=== PATIENT | female | born 1965 | race Caucasian/White ===

== ENCOUNTER 2017-11-10 09:08 | Emergency (ER) | payer BC, SELFPAY ==
--- NOTE | 2017-11-10 09:50 | XR_ITS ---
XR chest 2V HISTORY: ITS.REASON: CHEST CONGESTION ORDERING PHYSICIAN: Dorina Carlin PATIENT AGE: 52 years COMPARISON: 01/26/2017 FINDINGS: The cardiomediastinal silhouette and pulmonary vascularity are within normal limits. The lungs are clear without infiltrates, suspicious nodules, or pleural effusions. No acute bony abnormalities. IMPRESSION: No change with no acute finding
[2017-11-10 09:53] VITALS: BP 132/90; PULSE 88; RESP 18; TEMP 37.4; O2SAT 96; BMI 29.0
--- NOTE | 2017-11-10 10:00 | HMH.EDUTC ---
[facility] [place] Impression: Chest congestion Disposition: Home, Self-Care Condition on Discharge: Good Instructions: Cough, DI for Cough -- Adult Additional Instructions: Drink plenty of fluids Vaporizer or Humidifier will help some with breathing and cough Follow up with family doctor Return if needed Take medication as prescribed Use inhalers as prescribed Take Tessalon Perrles as prescribed Prescriptions: Albuterol Sulfate [Albuterol 0.083% 2.5mg/3mL neb] 2.5 mg IH Q4H #130 neb Azithromycin [Z-Yonatan 250mg Tab] 250 mg PO UD DOSE PK #6 tab predniSONE [Prednisone 20mg Tab] 20 mg PO BID #10 tab Referrals: Adriana King APRN [Primary Care Provider] - Medical Decision Making - Medical Records Medical records reviewed: Yes: I reviewed the patient's medical records. Vital Signs: 11/10/17 09:53 Temperature 99.3 F Temperature Source Temporal Artery Scan Pulse Rate [Right Brachial] 88 Respiratory Rate 18 Blood Pressure [Right Arm] 132/90 Blood Pressure Mean [Right Arm] 104 Blood Pressure Source [Right Arm] Automatic Cuff Blood Pressure Position [Right Arm] Sitting 02 Sat by Pulse Oximetry 96 Oxygen Delivery Method Room Air Orders (Tests/Meds): ED MEDICATIONS Discontinued Medications Generic Name Dose Route Start Last Admin Trade Name Keren PRN Reason Stop Dose Admin Albuterol/Ipratropium 3 ml 11/10/17 10:10 Duoneb 3ml Neb IH 11/10/17 10:11 ONCE ONE ORDERS Category Date Time Status CXR 2 view (NOT portable) [XR chest 2V] Stat Exams 11/10/17 09:50 Taken - Kareem Inquiry Pt receiving controlled substance: No Kareem was queried for this patient: No - Reevaluation(s) Time: 10:44 (After DuoNeb wheezing diminished and patient state that she has a nebulizer at home but no medication for it Prescription for albuteral given to continued neb treatment at home) [facility] [place] - General Stated complaint: cough,chest congestion Mode of Arrival: Ambulatory Source of Information: Patient Limitations: No Limitations Description of Symptoms (Recalled from Triage Doc. by RN): C/O cough and chest congestion x1 week HEENT Symptoms (Recalled from RN notes): No Resp Symptoms (Recalled from RN notes): Yes (Cough and chest congestion) Skin Symptoms (Recalled from RN notes): No MS Symptoms (Recalled from RN notes): No Functional Status (Recalled from RN notes): n/a - History of Present Illness Provider Complaint: Patient states that she has been having cough and congestion for over a week State that it has continued to get worse State that she has had some wheezing and was worried that she may have pneumonia - Related Data Home Medications Medication Instructions Recorded Confirmed budesonide-formoterol HFA 160 INHALATION 30 Days #10 11/09/17 mcg-4.5 mcg/actuation aerosol inhaler cephalexin 500 mg capsule PO 10 Days #20 11/09/17 lisinopril 5 mg tablet PO 30 Days #30 11/09/17 montelukast 10 mg tablet PO 90 Days #90 11/09/17 prednisone 20 mg tablet PO 7 Days #7 11/09/17 vitamin B complex capsule PO 90 Days #90 11/09/17 Previous Rx's Medication Instructions Recorded benzonatate 100 mg capsule 200 mg PO TID PRN #60 cap 11/09/17 Albuterol Sulfate [Albuterol 2.5 mg IH Q4H #130 neb 11/10/17 0.083% 2.5mg/3mL neb] Azithromycin [Z-Yonatan 250mg Tab] 250 mg PO UD DOSE PK #6 tab 11/10/17 predniSONE [Prednisone 20mg 20 mg PO BID #10 tab 11/10/17 Tab] Allergies Allergy/AdvReac Type Severity Reaction Status Date / Time No Known Allergies Allergy Unverified 11/09/17 10:11 - Worker's Comp Is this a Worker's Comp case?: No [facility] History I have reviewed the patient's past medical history: Yes Medical History: Reports:: Cancer Other Surgeries: Yes: Tubal Ligation Amputation: No Fractures: No - *Social History Smoking Status: Never smoker Alcohol Intake: current Alcohol Intake Frequency:: holidays/special occasions only - Psychi
--- NOTE | 2017-11-10 10:09 | ED_ITS ---
[facility] [place] Clinical Impression: Chest congestion Disposition: Home, Self-Care Condition on Discharge: Good Instructions: Cough, DI for Cough -- Adult Additional Instructions: Drink plenty of fluids Vaporizer or Humidifier will help some with breathing and cough Follow up with family doctor Return if needed Take medication as prescribed Use inhalers as prescribed Take Tessalon Perrles as prescribed Prescriptions: Albuterol Sulfate [Albuterol 0.083% 2.5mg/3mL neb] 2.5 mg IH Q4H #130 neb Azithromycin [Z-Yonatan 250mg Tab] 250 mg PO UD DOSE PK #6 tab predniSONE [Prednisone 20mg Tab] 20 mg PO BID #10 tab Referrals: Adriana King APRN [Primary Care Provider] - Medical Decision Making - Medical Records Medical records reviewed: Yes: I reviewed the patient's medical records. Vital Signs: 11/10/17 09:53 Temperature 99.3 F Temperature Source Temporal Artery Scan Pulse Rate [Right Brachial] 88 Respiratory Rate 18 Blood Pressure [Right Arm] 132/90 Blood Pressure Mean [Right Arm] 104 Blood Pressure Source [Right Arm] Automatic Cuff Blood Pressure Position [Right Arm] Sitting 02 Sat by Pulse Oximetry 96 Oxygen Delivery Method Room Air Orders (Tests/Meds): ED MEDICATIONS Discontinued Medications Generic Name Dose Route Start Last Admin Trade Name Keren PRN Reason Stop Dose Admin Albuterol/Ipratropium 3 ml 11/10/17 10:10 Duoneb 3ml Neb IH 11/10/17 10:11 ONCE ONE ORDERS Category Date Time Status CXR 2 view (NOT portable) [XR chest 2V] Stat Exams 11/10/17 09:50 Taken - Kareem Inquiry Pt receiving controlled substance: No Kareem was queried for this patient: No - Reevaluation(s) Time: 10:44 (After DuoNeb wheezing diminished and patient state that she has a nebulizer at home but no medication for it Prescription for albuteral given to continued neb treatment at home) [facility] [place] - General Stated complaint: cough,chest congestion Mode of Arrival: Ambulatory Source of Information: Patient Limitations: No Limitations Description of Symptoms (Recalled from Triage Doc. by RN): C/O cough and chest congestion x1 week HEENT Symptoms (Recalled from RN notes): No Resp Symptoms (Recalled from RN notes): Yes (Cough and chest congestion) Skin Symptoms (Recalled from RN notes): No MS Symptoms (Recalled from RN notes): No Functional Status (Recalled from RN notes): n/a - History of Present Illness Provider Complaint: Patient states that she has been having cough and congestion for over a week State that it has continued to get worse State that she has had some wheezing and was worried that she may have pneumonia - Related Data Home Medications Medication Instructions Recorded Confirmed budesonide-formoterol HFA 160 INHALATION 30 Days #10 11/09/17 mcg-4.5 mcg/actuation aerosol inhaler cephalexin 500 mg capsule PO 10 Days #20 11/09/17 lisinopril 5 mg tablet PO 30 Days #30 11/09/17 montelukast 10 mg tablet PO 90 Days #11/09/17 prednisone 20 mg tablet PO 7 Days #7 11/09/17 vitamin B complex capsule PO 90 Days #11/09/17 Previous Rx's Medication Instructions Recorded benzonatate 100 mg capsule 200 mg PO TID PRN #60 cap 11/09/17 Albuterol Sulfate [Albuter
[2017-11-10 10:57] VITALS: BP 132/90; PULSE 88; RESP 18; TEMP 37.4
== END 2017-11-10 10:59 | disposition home or self-care (01) ==
PROVIDERS: Emergency Provider Nurse Practitioner; Family Provider Nurse Practitioner Family; PCP Nurse Practitioner Family
DX: R09.89 Other specified symptoms and signs involving the circulatory and respiratory systems (principal); Z79.52 Long term (current) use of systemic steroids; Z79.899 Other long term (current) drug therapy; Z85.9 Personal history of malignant neoplasm, unspecified
CPT/HCPCS: 71046; 99202; 99281

== ENCOUNTER → 2017-12-21 11:43 | Outpatient (CLI) | payer BC, SELFPAY | PROVIDERS: Visit Provider Nurse Practitioner Family | DX: R10.10 Upper abdominal pain, unspecified (principal); R19.7 Diarrhea, unspecified; A07.2 Cryptosporidiosis | CPT/HCPCS: 87045; 87177 ==

== ENCOUNTER 2018-01-09 08:49 | Emergency (ER) | payer BC, SELFPAY ==
[2018-01-09 09:06] VITALS: BP 116/87; PULSE 68; RESP 20; TEMP 36.9; O2SAT 100; BMI 29.6
--- NOTE | 2018-01-09 09:10 | XR_ITS ---
XR chest 2V HISTORY: Chest pain, pain while breathing ITS.REASON: cough ORDERING PHYSICIAN: Dorina Carlin PATIENT AGE: 52 years COMPARISON: 11/10/2017 FINDINGS: Normal heart size. Linear density is present in the left perihilar region and may be related to atelectatic changes. A postobstructive process is a consideration. Consider chest CT with contrast for further evaluation. No lobar consolidation or collapse. No acute bony anomalies. IMPRESSION: Left perihilar atelectatic change cannot exclude central obstructing process. Consider chest CT with contrast for further evaluation
--- NOTE | 2018-01-09 09:11 | HMH.EDUTC ---
[facility] – [place] Disposition Clinical Impression: Chest congestion, Pleurisy Disposition: Home, Self-Care Condition on Discharge: Good Instructions: Pleurisy, DI for Pleurisy, DI for Acute Bronchitis Additional Instructions: Take medication as prescribed FOllow up with family doctor in 24-48 hours if no improvement or worsening of symptoms Return if needed Vaporizer/Humidifer may help with chest congestion and cough with soothing the throat Follow up with family doctor on Saturday to insure that treatment is effective Straight to ER if any difficulty breathing or any life threatening symptoms Stop taking the Biaxin and start on Augmentin Prescriptions: Ibuprofen [Ibuprofen 800mg Tab] 800 mg PO Q8HP PRN #20 tab PRN Reason: Moderate Pain Amoxicillin/Potassium Clav [Augmentin 500mg tab] 1 tab PO BID #20 tab predniSONE [Prednisone 5mg Tab Dose-Pack] 5 mg PO UD DOSE PK #21 pack Referrals: Adriana King APRN [Primary Care Provider] - (Follow up on Saturday for re-evaluation) Forms: Work/School Release Medical Decision Making - Medical Records Medical records reviewed: Yes: I reviewed the patient's medical records. - Kareem Inquiry Pt receiving controlled substance: No Kareem was queried for this patient: No Vital Signs: 01/09/18 09:06 Temperature 98.4 F Temperature Source Temporal Artery Scan Pulse Rate [Right] 68 Respiratory Rate 20 Blood Pressure [Right Arm] 116/87 Blood Pressure Mean [Right Arm] 96 Blood Pressure Source [Right Arm] Automatic Cuff Blood Pressure Position [Right Arm] Sitting 02 Sat by Pulse Oximetry 100 Oxygen Delivery Method Room Air - Lab Data Lab results reviewed: Yes: I reviewed the patient's lab results. Orders (Tests/Meds): ORDERS Category Date Time Status Chest XR 2 view (NOT portable) [XR chest 2V] Stat Exams 01/09/18 09:10 Taken - Radiology Data #1 Image(s): Chest Image Reviewed: Yes I reviewed the patient's radiology image w/the ED provider Preliminary Findings: No Infiltrates Seen Discussed with Dr Cohen no acute changes [facility] [place] HPI - General Stated complaint: pain in side Time Seen by Provider: 01/09/18 09:10 Mode of Arrival: Ambulatory Source of Information: Patient Limitations: No Limitations Description of Symptoms (Recalled from Triage Doc. by RN): COUGH, STATES BRONCHITIS HEENT Symptoms (Recalled from RN notes): No Resp Symptoms (Recalled from RN notes): Yes Skin Symptoms (Recalled from RN notes): No MS Symptoms (Recalled from RN notes): No Functional Status (Recalled from RN notes): N - History of Present Illness Provider Complaint: Patient state that she had the flu in October. State that in Nov. she was diagnosed with pneumonia and put on antibiotics State that now she is having pain in her right lung area when she coughs State that when she coughs the pain is worse State that she has not had any shortness of breath or trouble breathing. - Related Data Home Medications Medication Instructions Recorded Confirmed budesonide-formoterol HFA 160 INHALATION 30 Days #10 11/09/17 mcg-4.5 mcg/actuation aerosol inhaler cephalexin 500 mg capsule PO 10 Days #20 11/09/17 lisinopril 5 mg tablet PO 30 Days #30 11/09/17 montelukast 10 mg tablet PO 90 Days #90 11/09/17 prednisone 20 mg tablet PO 7 Days #7 11/09/17 vitamin B complex capsule PO 90 Days #90 11/09/17 Previous Rx's Medication Instructions Recorded benzonatate 100 mg capsule 200 mg PO TID PRN #60 cap 11/09/17 Albuterol Sulfate [Albuterol 2.5 mg IH Q4H #130 neb 11/10/17 0.083% 2.5mg/3mL neb] Azithromycin [Z-Yonatan 250mg Tab] 250 mg PO UD DOSE PK #6 tab 11/10/17 predniSONE [Prednisone 20mg 20 mg PO BID #10 tab 11/10/17 Tab] Amoxicillin/Potassium Clav 1 tab PO BID #20 tab 01/09/18 [Augmentin 500mg tab] Ibuprofen [Ibuprofen 800mg Tab] 800 mg PO Q8HP PRN #20 tab 01/09/18 predniSONE [Prednisone 5mg Tab 5 mg PO UD DOSE PK #21 pack 01/09/18 Dose-Pack] Jason
--- NOTE | 2018-01-09 09:14 | ED_ITS ---
[facility] – [place] Disposition Clinical Impression: Chest congestion, Pleurisy Disposition: Home, Self-Care Condition on Discharge: Good Instructions: Pleurisy, DI for Pleurisy, DI for Acute Bronchitis Additional Instructions: Take medication as prescribed FOllow up with family doctor in 24-48 hours if no improvement or worsening of symptoms Return if needed Vaporizer/Humidifer may help with chest congestion and cough with soothing the throat Follow up with family doctor on Saturday to insure that treatment is effective Straight to ER if any difficulty breathing or any life threatening symptoms Stop taking the Biaxin and start on Augmentin Prescriptions: Ibuprofen [Ibuprofen 800mg Tab] 800 mg PO Q8HP PRN #20 tab PRN Reason: Moderate Pain Amoxicillin/Potassium Clav [Augmentin 500mg tab] 1 tab PO BID #20 tab predniSONE [Prednisone 5mg Tab Dose-Pack] 5 mg PO UD DOSE PK #21 pack Referrals: Adriana King APRN [Primary Care Provider] - (Follow up on Saturday for re- evaluation) Forms: Work/School Release Medical Decision Making - Medical Records Medical records reviewed: Yes: I reviewed the patient's medical records. - Kareem Inquiry Pt receiving controlled substance: No Kareem was queried for this patient: No Vital Signs: 01/09/18 09:06 Temperature 98.4 F Temperature Source Temporal Artery Scan Pulse Rate [Right] 68 Respiratory Rate 20 Blood Pressure [Right Arm] 116/87 Blood Pressure Mean [Right Arm] 96 Blood Pressure Source [Right Arm] Automatic Cuff Blood Pressure Position [Right Arm] Sitting 02 Sat by Pulse Oximetry 100 Oxygen Delivery Method Room Air - Lab Data Lab results reviewed: Yes: I reviewed the patient's lab results. Orders (Tests/Meds): ORDERS Category Date Time Status Chest XR 2 view (NOT portable) [XR chest 2V] Stat Exams 01/09/18 09:10 Taken - Radiology Data #1 Image(s): Chest Image Reviewed: Yes I reviewed the patient's radiology image w/the ED provider Preliminary Findings: No Infiltrates Seen Discussed with Dr Cohen no acute changes [facility] [place] HPI - General Stated complaint: pain in side Time Seen by Provider: 01/09/18 09:10 Mode of Arrival: Ambulatory Source of Information: Patient Limitations: No Limitations Description of Symptoms (Recalled from Triage Doc. by RN): COUGH, STATES BRONCHITIS HEENT Symptoms (Recalled from RN notes): No Resp Symptoms (Recalled from RN notes): Yes Skin Symptoms (Recalled from RN notes): No MS Symptoms (Recalled from RN notes): No Functional Status (Recalled from RN notes): N - History of Present Illness Provider Complaint: Patient state that she had the flu in October. State that in Nov. she was diagnosed with pneumonia and put on antibiotics State that now she is having pain in her right lung area when she coughs State that when she coughs the pain is worse State that she has not had any shortness of breath or trouble breathing. - Related Data Home Medications Medication Instructions Recorded Confirmed budesonide-formoterol HFA 160 INHALATION 30 Days #10 11/09/17 mcg-4.5 mcg/actuation aerosol inhaler cephalexin 500 mg capsule PO 10 Days #20 11/09/17 lisinopril 5 mg tablet PO 30 Days #30 11/09/17 montelukast 10 mg tablet PO 90 Days #11/09/17 prednisone 20 mg tablet PO 7 Days #11/09/17 vitamin B complex capsule PO 90 Days #11/09/17
[2018-01-09 09:40] VITALS: BP 116/81; PULSE 68; RESP 20; TEMP 36.9
== END 2018-01-09 09:44 | disposition home or self-care (01) ==
PROVIDERS: Emergency Provider Nurse Practitioner; Family Provider Nurse Practitioner Family; PCP Nurse Practitioner Family
DX: R09.1 Pleurisy (principal); I10 Essential (primary) hypertension; J45.909 Unspecified asthma, uncomplicated
CPT/HCPCS: 71046; 99201

== ENCOUNTER 2018-07-25 11:00 | Outpatient (CLI) | payer BC, SELFPAY ==
[2018-07-25 11:30] VITALS: BP 145/70; PULSE 68; RESP 20; TEMP 36.9; O2SAT 96
[2018-07-25 12:00] VITALS: BP 155/70; PULSE 68; RESP 20; TEMP 36.9; O2SAT 96
[2018-07-25 12:30] VITALS: BP 118/70; PULSE 62; RESP 20; TEMP 36.9; O2SAT 96
[2018-07-25 13:00] VITALS: BP 146/84; PULSE 68; RESP 20; TEMP 36.9; O2SAT 96
[2018-07-25 13:32] VITALS: BP 142/82; PULSE 72; RESP 20; TEMP 37.1; O2SAT 96
== END 2018-07-25 13:35 | disposition home or self-care (01) ==
LOC: INF 11:03
PROVIDERS: PCP Nurse Practitioner Family; Visit Provider Nurse Practitioner Family
DX: E86.0 Dehydration (principal)
CPT/HCPCS: 96360; 96361

== ENCOUNTER → 2019-05-29 16:17 | Outpatient (CLI) | payer BC, SELFPAY | PROVIDERS: PCP Nurse Practitioner Family; Visit Provider Nurse Practitioner Family | DX: G47.33 Obstructive sleep apnea (adult) (pediatric) (principal); R40.0 Somnolence; R51 Headache; R06.83 Snoring; G47.00 Insomnia, unspecified | CPT/HCPCS: G0399 ==

== ENCOUNTER → 2019-10-13 14:04 | Outpatient (POV) | payer BC, SELFPAY | PROVIDERS: Visit Provider Dermatology | DX: Z00.00 Encounter for general adult medical examination without abnormal findings (principal) ==

== ENCOUNTER → 2019-10-26 10:40 | Outpatient (CLI) | payer BC, SELFPAY ==
[2019-10-26 11:23] LABS: Eosinophils # 0.2 K/mm3 (0.0-0.4); Eosinophils % 3.4 % (0.1-12.0); Hematocrit 45.9 % (37.0-47.0); Hemoglobin 14.8 g/dL (12.2-16.2); Lymphocytes # 1.6 K/mm3 (0.7-4.5); Lymphocytes % 36.1 % (10-50); Mean Corpuscular HGB Conc 32.1 g/dL (31.8-35.4); Mean Corpuscular Hemoglobin 29.1 pg (27.0-31.2); Mean Corpuscular Volume 90.7 fl (81-99); Mean Platelet Volume 8.9 fl (7.4-10.4); Monocytes # 0.2 K/mm3 (0.1-1.0); Monocytes % 5.2 % (1.7-9.3); Neutrophils # 2.4 K/mm3 (1.8-7.8); Neutrophils % 54.3 % (37.0-80.0); Platelet Count 280 K/mm3 (142-424); Red Blood Count 5.06 M/mm3 (4.20-5.40); Red Cell Distribution Width 13.1 % (11.5-17.5); White Blood Count 4.5 K/mm3 (4.8-10.8)
[2019-10-26 12:26] LABS: Hemoglobin A1C 5.8 % (0.0-7.0)
[2019-10-26 12:38] LABS: Alanine Aminotransferase 16 U/L (12-78); Albumin Level 3.7 gm/dL (3.4-5.0); Albumin/Globulin Ratio 1.4 (1.1-1.8); Alkaline Phosphatase 101 U/L (46-116); Anion Gap 13.3 mEq/L (5-15); Aspartate Amino Transferase 14 U/L (15-37); Bilirubin,Total 0.4 mg/dL (0.2-1.0); Blood Urea Nitrogen 14 mg/dL (7-18); Calcium 9.1 mg/dL (8.5-10.1); Carbon Dioxide 27 mmol/L (21.0-32.0); Chloride 104 mmol/L (98-107); Creatinine,Serum 0.95 mg/dL (0.55-1.02); Estimated Glomerular Filt Rate 61 ml/min (>60); GFR (African American) 74 ML/MIN (>60); Globulin 2.7 gm/dl (1.3-3.2); Glucose 116 mg/dL (74-106); Iron 98 ug/dl (28-170); Potassium 4.3 mmoL/L (3.5-5.1); Sodium 140 mmol/L (136-145); Thyroid Stimulating Hormone 2.44 uIU/ml (0.358-3.740); Total Protein,Serum 6.4 gm/dL (6.4-8.2)
[2019-10-28 07:41] LABS: Vitamin B12 504 pg/mL (232-1245); Vitamin D 25 Hydroxy 32.6 ng/mL (30.0-100.0)
== END ==
PROVIDERS: Visit Provider Nurse Practitioner Psychiatric/Mental Health
DX: F31.63 Bipolar disorder, current episode mixed, severe, without psychotic features (principal)
CPT/HCPCS: 36415; 80053; 82565; 82607; 82652; 83036; 83540; 83735; 84443; 84520; 85025

== ENCOUNTER → 2020-02-22 10:47 | Outpatient (CLI) | payer BC, SELFPAY ==
--- NOTE | 2020-02-22 10:59 | XR_ITS ---
PROCEDURE: XR CHEST 2V CLINICAL HISTORY: CHEST PAIN COMPARISON: CXR CHEST(2 VIEWS-NOT PORTABLE) from 01/26/2017 [facility] CTA-CHEST from 01/26/2017 CXR2V XR chest 2V from 11/10/2017 CXR2V XR chest 2V from 01/09/2018 FINDINGS: Unremarkable cardiovascular structures. There is nodularity noted in the right hilar region. This may only be due to overlapping vascular structures. The lungs are clear without infiltrates, suspicious nodules, or pleural effusions. No acute bony abnormalities. IMPRESSION: Nodularity in the right hilar region which may be due to overlapping vascular structures and may be confirmed with follow-up. No definite acute finding Dictated by: Jian Blackman MD 02/22/2020 11:54 Electronically signed by Jian Blackman MD in [place] 02/22/2020 11:54
== END ==
PROVIDERS: PCP Nurse Practitioner Family; Visit Provider Nurse Practitioner Family
DX: R07.9 Chest pain, unspecified (principal)
CPT/HCPCS: 71046

== ENCOUNTER → 2020-03-15 10:45 | Outpatient (CLI) | payer OTHER, SELFPAY ==
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
== END ==
PROVIDERS: PCP Nurse Practitioner Family; Visit Provider Nurse Practitioner Family
DX: M54.2 Cervicalgia (principal); V89.2XXA Person injured in unspecified motor-vehicle accident, traffic, initial encounter
CPT/HCPCS: 72050

== ENCOUNTER → 2020-03-28 14:35 | Outpatient (CLI) | payer BC, SELFPAY ==
--- NOTE | 2020-03-28 14:42 | XR_ITS ---
PROCEDURE: XR CHEST 2V CLINICAL HISTORY: ABN CXR COMPARISON: CXR CHEST(2 VIEWS-NOT PORTABLE) from 07/17/2013 CXR CHEST(2 VIEWS-NOT PORTABLE) from 06/22/2014 [facility] CTA-CHEST from 01/26/2017 CXR CHEST(2 VIEWS-NOT PORTABLE) from 01/26/2017 CXR2V XR chest 2V from 11/10/2017 CXR2V XR chest 2V from 01/09/2018 XR CHEST 2V from 02/22/2020 FINDINGS: The cardiomediastinal silhouette and pulmonary vascularity are within normal limits. Nodularity in right hilar region once again noted not significantly changed. Cannot exclude nodule. Consider chest CT with contrast for further evaluation. The remaining lungs are clear. No acute bony abnormalities. IMPRESSION: No change nodular opacity right hilum. Consider chest CT with contrast to confirm overlapping vessel versus nodule Dictated by: Jian Blackman MD 03/28/2020 16:16 Electronically signed by Jian Blackman MD in [facility] 03/28/2020 16:16
== END ==
PROVIDERS: PCP Nurse Practitioner Family; Visit Provider Nurse Practitioner Family
DX: R93.89 Abnormal findings on diagnostic imaging of other specified body structures (principal)
CPT/HCPCS: 71046

== ENCOUNTER → 2020-04-05 16:16 | Outpatient (CLI) | payer OTHER, BC, SELFPAY ==
--- NOTE | 2020-04-05 | XR_ITS ---
PROCEDURE: XR SHOULDER LT MIN 2V CLINICAL INDICATION: Pain COMPARISON: No exams were available for comparison FINDINGS: No fracture or dislocation. No lytic or blastic change. There is normal mineralization. The joint spaces are well-preserved. No significant degenerative/arthritic changes. No erosive changes evident. Other findings:None. IMPRESSION: No acute findings. Dictated by: Ammon Dash 04/05/2020 16:38 Electronically signed by Ammon Dash in [facility] 04/05/2020 16:38
== END ==
PROVIDERS: PCP Nurse Practitioner Family; Visit Provider Nurse Practitioner Family
DX: M25.512 Pain in left shoulder (principal); V89.2XXA Person injured in unspecified motor-vehicle accident, traffic, initial encounter
CPT/HCPCS: 73030

== ENCOUNTER → 2020-04-14 07:44 | Outpatient (CLI) | payer BC, SELFPAY ==
--- NOTE | 2020-04-14 | CT_ITS ---
PROCEDURE: CT CHEST WO CON CLINICAL INDICATION: ABN CXR Follow-up lung nodule, right-sided pulmonary nodule, solitary pulmonary nodule COMPARISON: ABDPELW/O CT ABD PELVIS W/O CONTRAST from 12/06/2014 [facility]AC CTA-CHEST from 01/26/2017 XR CHEST 2V from 03/28/2020 TECHNIQUE: Axial images obtained with sagittal and coronal reformats. All CT scans at the facility use one or more dose reduction, viz: automated exposure control, ma/kV adjustment per patient size (including targeted exams where dose is matched to indication, i.e. head), or iterative reconstruction technique. FINDINGS: HEART AND MEDIASTINAL STRUCTURES: No mediastinal or hilar mass or adenopathy. There is nonspecific thickening of the distal esophagus. LUNGS AND PLEURAL SPACES: There are mild atelectatic changes in the right hilum. No suspicious pulmonary nodules evident in the right hilum. There is a calcified lymph node in the right hilum which may account for part of the radiographic abnormality. Calcified granuloma is present in the right lower lobe. There are mild atelectatic or fibrotic changes in the right lung base. Atelectatic or fibrotic changes are present in the lingula. No effusions or infiltrates. BONY STRUCTURES: Mild upper thoracic scoliosis convex left UPPER ABDOMEN: Hypodense nodule in the left hepatic lobe at 6 mm slightly larger from 01/26/2017 too small to categorize. ADDITIONAL FINDINGS: No other significant abnormalities. IMPRESSION: No suspicious pulmonary nodules evident. Radiographic abnormality likely secondary to overlapping vessel and partially calcified lymph node Bilateral areas of atelectasis or scarring. Dictated by: Jian Blackman MD 04/15/2020 08:39 Electronically signed by Jian Blackman MD in [facility] 04/15/2020 08:39
== END ==
PROVIDERS: PCP Nurse Practitioner Family; Visit Provider Nurse Practitioner Family
DX: R93.89 Abnormal findings on diagnostic imaging of other specified body structures (principal)
CPT/HCPCS: 71250

== ENCOUNTER → 2021-02-21 08:27 | Outpatient (CLI) | payer BC, SELFPAY ==
--- NOTE | 2021-02-21 08:44 | CT_ITS ---
PROCEDURE: CT CHEST W CON CLINCAL INDICATION: ABN CHEST X-RAY, COUGH COMPARISON: CT CT CHEST WO CON from 04/14/2020 TECHNIQUE: IV Contrast: 75ml Isovue 370 Axial images obtained with sagittal and coronal reformats. All CT scans at the facility use one or more dose reduction, viz: automated exposure control, ma/kV adjustment per patient size (including targeted exams where dose is matched to indication, i.e. head), or iterative reconstruction technique. FINDINGS: LUNGS / AIRWAYS:No focal consolidation, pleural effusions or pneumothorax. Minor atelectasis is noted in the right middle lobe and left upper lobe. The central tracheobronchial tree is patent. No suspicious lung nodules are noted. HEART / GREAT VESSELS: Heart:The heart is normal in size. No pericardial effusions. Vessels: The thoracic aorta is unremarkable. MEDIASTINUM: Mediastinum: No significant mediastinal or hilar adenopathy. Abdomen:Cholecystectomy is noted. Focal hypodense lesion is noted in the left lobe of the liver measuring 6 millimeters, unchanged compared to prior study. Calcified granulomas noted in the spleen, likely secondary to prior granulomatous disease. Small to moderate hiatus hernia is noted. BONES: Minor degenerative changes of the visualized thoracic spine. Thyroid: The visualized thyroid gland is unremarkable. IMPRESSION: No acute intrathoracic abnormality. No suspicious pulmonary nodules. Dictated by: Veronica Holland 02/21/2021 11:21 Veronica Holland in [facility] 02/21/2021 11:21
[2021-02-21 09:09] LABS: Blood Urea Nitrogen 12 mg/dl (7-17); Estimated Glomerular Filt Rate 87 ml/min (>60); GFR (African American) 105 ML/MIN (>60)
== END ==
PROVIDERS: PCP Nurse Practitioner Family; Visit Provider Nurse Practitioner Family
DX: R05 Cough (principal); R93.89 Abnormal findings on diagnostic imaging of other specified body structures
CPT/HCPCS: 36415; 71260; 82565; 84520; Q9967

== ENCOUNTER → 2021-06-16 10:31 | Outpatient (CLI) | payer BC, SELFPAY ==
--- NOTE | 2021-06-16 10:38 | XR_ITS ---
PROCEDURE: XR HIP LT 2-3V W/PELVIS CLINICAL INDICATION: LT HIP PAIN COMPARISON: No exams were available for comparison FINDINGS: No fracture or dislocation is evident. No significant degenerative change. The SI joints appear normal. No lytic or blastic change. Unremarkable soft tissues. IMPRESSION: No acute findings. Dictated by: Dr. Oliver Wong MD 06/16/2021 11:51 Dr. Oliver Wong MD in [place] 06/16/2021 11:51
[2021-06-16 12:23] LABS: Chloride 104 mmol/L (98-107)
[2021-06-16 12:24] LABS: Potassium 4.7 mmoL/L (3.5-5.1); Sodium 138 mmol/L (136-145)
[2021-06-16 12:26] LABS: Alanine Aminotransferase 12 U/L (12-78); Alkaline Phosphatase 89 U/L (38-126); Aspartate Amino Transferase 24 U/L (14-36); Bilirubin,Total 0.5 mg/dl (0.2-1.3); Blood Urea Nitrogen 15 mg/dl (7-17); Estimated Glomerular Filt Rate 65 ml/min (>60); GFR (African American) 79 ML/MIN (>60)
[2021-06-16 12:27] LABS: Albumin Level 4.3 g/dl (3.5-5.0); Albumin/Globulin Ratio 1.7 (1.1-1.8); Anion Gap 12.7 mEq/L (5-15); Calcium 9.5 mg/dl (8.4-10.2); Carbon Dioxide 26 mmol/L (22.0-30.0); Globulin 2.5 g/dL (1.3-3.2); Glucose 81 mg/dl (74-100); Total Protein,Serum 6.8 g/dl (6.3-8.2)
[2021-06-17 18:37] LABS: Deamidated Gliadin Abs, IgA 5 units (0-19); Deamidated Gliadin Abs, IgG 3 units (0-19); Tissue Transglutaminase IgA Ab <2 U/mL (0-3); Tissue Transglutaminase IgG Ab <2 U/mL (0-5)
[2021-06-21 08:23] LABS: Endomysial IgA Antibody Negative (Negative); Reticulin IgA Antibody Negative titer (Neg:<1:2.5)
== END ==
PROVIDERS: PCP Nurse Practitioner Family; Referring Provider Nurse Practitioner Family; Visit Provider Nurse Practitioner Family
DX: M25.552 Pain in left hip (principal); R19.7 Diarrhea, unspecified; R15.2 Fecal urgency
CPT/HCPCS: 36415; 73502; 80053; 83516; 86255; 86256

== ENCOUNTER 2022-03-21 05:21 | Emergency (ER) | payer BC, SELFPAY ==
[2022-03-21] VITALS (16 sets, daily range): BP systolic 88–164; BP diastolic 52–116; PULSE 47–89; RESP 9–16; TEMP 36.8–36.9; O2SAT 93–99; BMI 27.8
--- NOTE | 2022-03-21 05:14 | ECG_ITS ---
APPROVED REPORT Exam: Resting ECG HR:76 bpm ECG Measurements Heart Rate 76 AXES IA 141 P 67 QRSd 84 QRS 50 QT 367 T 74 QTc 397 Conclusion SINUS RHYTHM NORMAL ECG UNCONFIRMED REPORT Electronically signed by : Dk Saleem MD 03/21/2022 16:52:56
--- NOTE | 2022-03-21 05:26 | XR_ITS ---
PROCEDURE INFORMATION: Exam: XR Chest Exam date and time: 03/21/2022 5:26 AM Age: 56 years old Clinical indication: Sternal or substernal pain; Additional info: Chest pain TECHNIQUE: Imaging protocol: XR of the chest. Views: 2 views. COMPARISON: CT CHEST W CON 02/21/2021 9:21 AM FINDINGS: Lungs: Unremarkable. No consolidation. Pleural spaces: Unremarkable. No pleural effusion. No pneumothorax. Heart/Mediastinum: Unremarkable. No cardiomegaly. Bones/joints: Unremarkable. IMPRESSION: No acute findings.
--- NOTE | 2022-03-21 05:57 | ECG_ITS ---
APPROVED REPORT Exam: Resting ECG HR:46 bpm ECG Measurements Heart Rate 46 AXES WV 159 P 63 QRSd 84 QRS 70 QT 476 T 83 QTc 435 Conclusion SINUS BRADYCARDIA BORDERLINE ECG UNCONFIRMED REPORT Electronically signed by : Dk Saleem MD 03/21/2022 16:52:46
--- NOTE | 2022-03-21 06:02 | PC.NURSE ---
PT REPORTS PAIN IS RELIEVED WITH NITRO SL.
[2022-03-21 06:05] LABS: Basophils # 0.2 K/mm3 (0-0.2); Basophils % 2.6 % (0.1-2.0); Eosinophils # 0.4 K/mm3 (0.0-0.4); Hematocrit 52.1 % (37.0-47.0); Hemoglobin 16.2 g/dL (12.2-16.2); Lymphocytes # 2.1 K/mm3 (0.7-4.5); Lymphocytes % 33.2 % (10-50); Mean Corpuscular HGB Conc 31.1 g/dL (31.8-35.4); Mean Corpuscular Hemoglobin 29.4 pg (27.0-31.2); Mean Corpuscular Volume 94.6 fl (81-99); Mean Platelet Volume 9.7 fl (7.4-10.4); Monocytes # 0.5 K/mm3 (0.1-1.0); Monocytes % 7.4 % (1.7-9.3); Neutrophils # 3.1 K/mm3 (1.8-7.8); Neutrophils % 49.8 % (37.0-80.0); Platelet Count 294 K/mm3 (142-424); Red Blood Count 5.51 M/mm3 (4.20-5.40); Red Cell Distribution Width 13.1 % (11.5-17.5); White Blood Count 6.2 K/mm3 (4.8-10.8)
[2022-03-21 06:22] LABS: Chloride 106 mmol/L (98-107); Potassium 3.8 mmoL/L (3.5-5.1); Sodium 142 mmol/L (136-145)
[2022-03-21 06:24] LABS: Amylase 75 U/L (30-110)
[2022-03-21 06:25] LABS: Alanine Aminotransferase 17 U/L (12-78); Albumin Level 4.8 g/dl (3.5-5.0); Alkaline Phosphatase 96 U/L (38-126); Anion Gap 11.8 mEq/L (5-15); Aspartate Amino Transferase 33 U/L (14-36); Bilirubin,Direct 0.1 mg/dl (0.0-0.4); Bilirubin,Indirect 0.4 mg/dL (0.0-0.9); Bilirubin,Total 0.5 mg/dl (0.2-1.3); Bilirubin,Unconjugated 0.4 mg/dL (0.0-1.1); Blood Urea Nitrogen 15 mg/dl (7-17); Calcium 9.6 mg/dl (8.4-10.2); Carbon Dioxide 28 mmol/L (22.0-30.0); Creatinine Clearance Estimated 85 mL/min (50-200); Estimated Glomerular Filt Rate 74 ml/min (>60); GFR (African American) 90 ML/MIN (>60); Glucose 97 mg/dl (74-100); Total Protein,Serum 7.7 g/dl (6.3-8.2)
[2022-03-21 06:31] LABS: C-Reactive Protein 0.9 mg/L (0-4); Erythrocyte Sedimentation Rate 4 mm/hr (0-30)
[2022-03-21 06:40] LABS: Troponin I < 0.01 ng/ml (0.00-0.034)
--- NOTE | 2022-03-21 06:45 | HMH.EDCP ---
ED Disposition Clinical Impression: Chest pain Qualifiers: Chest pain type: precordial pain Qualified Code(s): R07.2 - Precordial pain Disposition: Home, Self-Care Condition on Discharge: Good Instructions: DI for Chest Pain Additional Instructions: see card an pcp as op Referrals: Adriana King APRN [Primary Care Provider] - Ramin Gonzalez MD [Staff Physician] - - Critical Care Critical Care Time: No Attestation: On 03/21/22, the high probability of a clinically significant, sudden or life threatening deterioration of the following system(s) required my full and direct attention, intervention and personal management. The time I documented below is in addition to time spent performing reported procedures but includes the following listed in this critical care notation. Medical Decision Making - Medical Records Medical records reviewed: Yes: I reviewed the patient's medical records. - Kareem Inquiry Pt receiving controlled substance: No Vital Signs: 03/21/22 05:21 03/21/22 05:39 03/21/22 05:44 Temperature 98.5 F Temperature Source Oral Pulse Rate 75 75 Pulse Rate [Left Radial] 83 Respiratory Rate 16 12 10 L Blood Pressure 164/107 H 162/97 H Blood Pressure [Right Arm] 163/116 H Blood Pressure Mean 125 130 Blood Pressure Mean [Right Arm] 131 Blood Pressure Source Blood Pressure Source [Right Arm] Automatic Cuff Blood Pressure Position [Right Arm] Sitting 02 Sat by Pulse Oximetry 99 98 98 Oxygen Delivery Method Room Air 03/21/22 05:58 03/21/22 06:00 03/21/22 06:03 Temperature Temperature Source Pulse Rate 47 L 50 L 64 Pulse Rate [Left Radial] Respiratory Rate 9 L 10 L 9 L Blood Pressure 92/54 L 88/52 L 95/60 L Blood Pressure [Right Arm] Blood Pressure Mean 65 Blood Pressure Mean [Right Arm] Blood Pressure Source Manual Cuff/ Auscultation Blood Pressure Source [Right Arm] Blood Pressure Position [Right Arm] 02 Sat by Pulse Oximetry 94 L 96 94 L Oxygen Delivery Method Room Air 03/21/22 06:12 03/21/22 06:52 03/21/22 07:02 Temperature Temperature Source Pulse Rate 67 77 78 Pulse Rate [Left Radial] Respiratory Rate 9 L Blood Pressure 99/66 L 113/70 108/69 L Blood Pressure [Right Arm] Blood Pressure Mean 83 79 Blood Pressure Mean [Right Arm] Blood Pressure Source Blood Pressure Source [Right Arm] Blood Pressure Position [Right Arm] 02 Sat by Pulse Oximetry 93 L 97 98 Oxygen Delivery Method Room Air 03/21/22 07:12 03/21/22 07:23 Temperature Temperature Source Pulse Rate 78 79 Pulse Rate [Left Radial] Respiratory Rate Blood Pressure 103/75 L 113/81 Blood Pressure [Right Arm] Blood Pressure Mean 83 90 Blood Pressure Mean [Right Arm] Blood Pressure Source Blood Pressure Source [Right Arm] Blood Pressure Position [Right Arm] 02 Sat by Pulse Oximetry 98 99 Oxygen Delivery Method - Lab Data Lab results reviewed: Yes: I reviewed the patient's lab results. Lab Results 03/21/22 05:23: WBC 6.2, RBC 5.51 H, Hgb 16.2, Hct 52.1 H, MCV 94.6, MCH 29.4, MCHC 31.1 L, RDW 13.1, Plt Count 294, MPV 9.7, Neut % (Auto) 49.8, Lymph % (Auto) 33.2, [place] % (Auto) 7.4, Eos % (Auto) 7.0, Baso % (Auto) 2.6 H, Neut # (Auto) 3.1, Lymph # (Auto) 2.1, [place] # (Auto) 0.5, Eos # (Auto) 0.4, Baso # (Auto) 0.2 03/21/22 05:23: Sodium 142, Potassium 3.8, Chloride 106, Carbon Dioxide 28, Anion Gap 11.8, BUN 15, Creatinine 0.80, Estimated Creat Clear 85, Estimated GFR 74, Est GFR ( Amer) 90, Glucose 97, Calcium 9.6, Total Bilirubin 0.5, Direct Bilirubin 0.1, Conjugated Bilirubin 0.0, Indirect Bilirubin 0.4, Unconjugated Bilirubin 0.4, AST 33, ALT 17, Alkaline Phosphatase 96, Troponin I < 0.01, C-Reactive Protein 0.9, Total Protein 7.7, Albumin 4.8 03/21/22 05:23: ESR 4 03/21/22 05:23: Amylase 75, Procalcitonin 0.051 03/21/22 05:23: Lipase 64 03/21/22 08:26: Troponin I < 0.01 Result diagrams: 03/21/22 05:23
[2022-03-21 07:04] LABS: Lipase 64 U/L (23-300)
--- NOTE | 2022-03-21 07:14 | CA_ITS ---
APPROVED REPORT EXAM: Comprehensive 2D, Doppler, and color-flow Echocardiogram Residential Supervisor: Alka Pak, RCS, RVS Ht: 5 ft 2 in Wt: 152lbs BSA: 1.70 BP: 99/66 mmHg Indications: CP, HX-vocal chord cancer 2D Dimensions IVSd 0.91 cm LVEF (Visual) 67.00 % PWd 0.74 cm LA Volume 25.40 mL LVDd 4.37 cm LA Volume Index 14.90 mL/m2 (M/F) 16-34 LVDs 2.76 cm Aortic Root 2.48 cm Left Atrium 2.71 cm LVOT 1.97 cm (M/F) 1.5-2.5 M-Mode Dimensions RVDd 1.98 cm (0.9-2.6) LA Diam 2.93 cm (1.9-4.0) LVDd 4.46 cm (3.5-5.7) Ao Diam 2.79 cm (2.0-3.7) LVDs 2.85 cm (3.5-5.7) IVSd 0.87 cm (0.6-1.1) PWd 0.57 cm (0.6-1.1) EF (Teich) 64.40% EPSs 0.40 cm FS 34.90% EDV (Teich) 86.80 mL TAPSE 1.97 (<1.7) ESV (Teich) 30.90 mL LV Diastology E Decel Time 150.00 (160-240 msec) E/A Ratio 0.81 MED E' 8.60 (< 7 cm/sec) MED A' 13.70 cm/s E'/MED E' Ratio 10.49 (>14) LAT E' 8.60 (<10 cm/sec) LAT A' 11.70 cm/s E/LAT E' Ratio 10.49 (>14) Aortic Valve LVOT Max 94.00 (70-110 cm/s) LVOT VTI 17.38 cm AoV Peak Fei. 131.00 (50-130 cm/s) AO Peak GR. 6.90 mmHg AO Mean GR. 3.40 (<5 mmHg) AO VTI 25.55 (18-25 cm) BELLA (VTI) 2.07 (2.5-4.5 cm2) Mitral Valve MV A Velocity 111.00 (40-130 cm/s) E/A Ratio 0.81 MV Decel. Time 150.00 (160-240 ms) MV PHT 43.00 ms Pulmonary Valve PV Peak Velocity 76.00 (50-150 cm/s) Tricuspid Valve TR P. Velocity 234.00 cm/s RAP Estimate 10.00 mmHg RVSP 31.90 mmHg Left Ventricle Left atrium is normal size, left ventricle is normal size, left ventricle wall thickness is upper limit of the normal present left ventricular systolic function estimated ejection fraction 55% with no regional wall motion abnormality, Doppler evidence of impaired LV relaxation seen without tissue Doppler evidence of raise left atrial pressure. Right Ventricle Right atrium and right ventricle are normal size and contractility. Aortic Valve Aortic valve is minimally thickened and fibrosed there is no aortic stenosis or aortic insufficiency. Mitral Valve Mitral is grossly normal, there is trace mitral regurgitation. Tricuspid Valve Tricuspid valve grossly normal, there is trace tricuspid regurgitation, calculated right ventricular systolic pressure 32 mmHg. Pulmonic Valve Pulmonic valve is poorly visualized. Great Vessels Aortic root is normal size. Inferior vena cava is normal size with normal inspiratory collapse. Pericardium No significant pericardial effusion noted. Conclusion 1. Normal left ventricular size preserved left ventricular systolic function, estimated ejection fraction 55% with no regional wall motion abnormality, Doppler evidence of impaired LV relaxation seen without tissue Doppler evidence of raise left atrial pressure. 2. Trace mitral and tricuspid regurgitation, calculated right ventricular systolic pressure 32 mmHg. 3. No significant pericardial effusion. 4. Inferior vena cava normal size with normal inspiratory collapse. Electronically signed by : Braxton Rodrigues MD 03/21/2022 12:24:36
--- NOTE | 2022-03-21 07:17 | PC.NURSE ---
Notified CV labv of echo. Pt placed in gown and updated on POC
--- NOTE | 2022-03-21 07:26 | PC.NURSE ---
Echo at bedside
--- NOTE | 2022-03-21 07:50 | PC.NURSE ---
speaking with Dr. Gonzalez
--- NOTE | 2022-03-21 08:10 | PC.NURSE ---
Therese Pastrana, Tripoler called Cardiology
--- NOTE | 2022-03-21 08:33 | PC.NURSE ---
Cardiology PA, Dr. Riley is at BS
[2022-03-21 08:37] LABS: Procalcitonin 0.051 ng/mL (0.0-2.0)
[2022-03-21 08:57] LABS: Troponin I < 0.01 ng/ml (0.00-0.034)
--- NOTE | 2022-03-21 09:15 | PC.NURSE ---
pt ambulatory to and from restroom without complications; hooked back to monitor; no other needs at this time
--- NOTE | 2022-03-21 09:20 | PC.NURSE ---
Dr. Riley called and spoke with Therese Pastrana, reporting her 2nd Troponin was negative, she can be discharged and to follow up with Cardiology in 1 week.
--- NOTE | 2022-03-21 09:58 | HMH.CNCARD ---
History of Present Illness Consult date: 03/21/22 Requesting physician: Miguel A Courtney Consult reason: chest pain Chief complaint: chest pain Additional Medical History:: HTN not a smoker History of present illness: 56 year old female who denies past medical hx presented to ER with complaint of chest pain. patient reports she awoke at 0400 am with midsternal chest pressure that was exacerbated with deep breathing. reports at first thought it was just indigestion from eating [employer] last night but when symptoms wouldn't resolve decided to go to ER. Patient was given nitro and BP dropped into the 90s sytolic but resolved with fluid bolus. Patient has remained chest pain free since. states chest hurts a little when takes a deep breath. EKG was negative for any ischemic changes and two sets of cardiac enzymes remain normal. all other labs are unremarkable, chest x-ray negative. Wells score for PE 0.0- low risk. [facility] History Medical History: Reports:: Depression, Hypertension *Have you ever received a pneumonia vaccine?: Yes *Have you received a flu vaccine this season?: Yes Other Surgeries: Yes: Tubal Ligation, Other Amputation: No Fractures: No - *Social History Smoking Status: Never smoker Alcohol Intake: never Alcohol Intake Frequency:: holidays/special occasions only *Occupational Status:: employed *Travel in the last 8 weeks: None - Psychiatric History Pschychiatric History:: Reports:: Depression Family Hx:: Diabetes, Cancer, Heart Attack, Stroke Meds Home Medications Medication Instructions Recorded Confirmed Type budesonide-formoterol HFA 160 1 aer INHALATION DAILY 30 Days #10 11/09/17 03/21/22 History mcg-4.5 mcg/actuation aerosol inhaler Albuterol Sulfate [Albuterol 2.5 mg IH Q4H 07/25/18 03/21/22 History 0.083% 2.5mg/3mL neb] lamotrigine 200 mg tablet,extended 1 tab PO DAILY 03/27/21 03/21/22 History release 24 hr levomefolate calcium 15 mg tablet 1 tab PO DAILY 03/27/21 03/21/22 History colestipol 1 gram tablet 1 tab PO DAILY 03/07/22 03/21/22 History vilazodone 40 mg tablet 40 mg PO DAILY tab 03/07/22 03/21/22 History Estradiol/Norethindrone Acet 1 patch TD .every 3 to 4 days 03/21/22 03/21/22 History [CombiPatch] Allergies Allergy/AdvReac Type Severity Reaction Status Date / Time No Known Allergies Allergy Verified 03/07/22 15:35 Exam Vital signs and Labs for Last 24 Hours: Temp Pulse Resp BP Pulse Ox 98.5 F 79 9 L 113/81 99 03/21/22 05:21 03/21/22 07:23 03/21/22 06:12 03/21/22 07:23 03/21/22 07:23 Laboratory Results - last 24 hr 03/21/22 05:23: WBC 6.2, RBC 5.51 H, Hgb 16.2, Hct 52.1 H, MCV 94.6, MCH 29.4, MCHC 31.1 L, RDW 13.1, Plt Count 294, MPV 9.7, Neut % (Auto) 49.8, Lymph % (Auto) 33.2, [place] % (Auto) 7.4, Eos % (Auto) 7.0, Baso % (Auto) 2.6 H, Neut # (Auto) 3.1, Lymph # (Auto) 2.1, [place] # (Auto) 0.5, Eos # (Auto) 0.4, Baso # (Auto) 0.2 03/21/22 05:23: Sodium 142, Potassium 3.8, Chloride 106, Carbon Dioxide 28, Anion Gap 11.8, BUN 15, Creatinine 0.80, Estimated Creat Clear 85, Estimated GFR 74, Est GFR ( Amer) 90, Glucose 97, Calcium 9.6, Total Bilirubin 0.5, Direct Bilirubin 0.1, Conjugated Bilirubin 0.0, Indirect Bilirubin 0.4, Unconjugated Bilirubin 0.4, AST 33, ALT 17, Alkaline Phosphatase 96, Troponin I < 0.01, C-Reactive Protein 0.9, Total Protein 7.7, Albumin 4.8 03/21/22 05:23: ESR 4 03/21/22 05:23: Amylase 75, Procalcitonin 0.051 03/21/22 05:23: Lipase 64 03/21/22 08:26: Troponin I < 0.01 I & O for Last 24 hours: Intake & Output 03/18/22 03/19/22 03/20/22 06/08/22 23:59 23:59 23:59 23:59 Weight 152 lb - Constitutional no acute distress - *Routine Respiratory Exam Present: CTA bilaterally - *Routine Cardiovascular Exam Present: RRR - *Routine Extremities Exam Absent: cyanosis, clubbing, edema - *Routine Skin Exam Present: warm. Absent: rash Review of Systems - *Cardiovascular Reports chest pa
== END 2022-03-21 10:07 | disposition home or self-care (01) ==
PROVIDERS: Emergency Provider Emergency Medicine; PCP Nurse Practitioner Family
DX: R07.2 Precordial pain (principal); R00.1 Bradycardia, unspecified
CPT/HCPCS: 71046; 80048; 80076; 82150; 83690; 84145; 84484; 85025; 85651; 86140; 93005; 93306; 96374; 96375; 99285; J2405

== ENCOUNTER → 2022-04-05 14:55 | Outpatient (CLI) | payer BC, SELFPAY ==
--- NOTE | 2022-04-05 14:57 | CT_ITS ---
FINAL REPORT TECHNIQUE: Axial images were obtained from the lung apex to the mid abdomen by computed tomography. Coronal reformatted images were obtained. This study was performed with techniques to keep radiation doses as low as reasonably achievable, (ALARA). Individualized dose reduction techniques using automated exposure control or adjustment of mA and/or kV according to the patient''s size were employed. CLINICAL HISTORY: CHEST PAIN HISTORY OF THROAT CANCER COMPARISON: February 21, 2021 and April 14, 2020 FINDINGS: There is no axillary adenopathy. There is no hilar or mediastinal adenopathy. Heart size is normal. There is no pericardial or pleural effusion. Limited images of the upper abdomen demonstrates 2 stable less than 1 cm low attenuation foci in the left hepatic lobe which are likely cysts. There are postoperative changes from cholecystectomy. On the lung window images, there is a 2 mm left upper lobe nodule on image 13 which is stable. There is a calcified granuloma in the right lower lobe. There are no new mass or nodules identified. IMPRESSION: Left upper lobe nodule stable since April 2020. No new mass or nodule identified. Other stable findings. Reviewed, Interpreted and Dictated by Virgil Urbina III, MD Transcribed by Stephanie Alcocer Authenticated and [facility]
== END ==
LOC: RAD 14:55
PROVIDERS: PCP Nurse Practitioner Family; Visit Provider Nurse Practitioner Family
DX: R07.9 Chest pain, unspecified (principal); Z85.819 Personal history of malignant neoplasm of unspecified site of lip, oral cavity, and pharynx
CPT/HCPCS: 71250

== ENCOUNTER 2022-10-14 09:05 | Emergency (ER) | payer BC, SELFPAY ==
--- NOTE | 2022-10-14 09:09 | EXP.UTC ---
Discharge Plan Disposition Patient Disposition: Home, Self-Care Condition: Good Prescriptions Prescriptions: New amoxicillin [amoxicillin] 875 mg tablet 875 mg PO Q12H Qty: 20 0RF benzonatate [benzonatate] 100 mg capsule 100 mg PO TIDP PRN (Reason: Cough) Qty: 30 0RF methylprednisolone 4 mg Tablets,Dose Pack 4 mg PO DIRECTED Qty: 21 0RF No Action budesonide-formoterol 160-4.5 mcg/actuation HFA aerosol inhaler 1 aer INHALATION DAILY 30 Days Qty: 10 Label Comments: lamotrigine 200 mg tablet extended release 24hr 1 tab PO DAILY levomefolate calcium 15 mg tablet 1 tab PO DAILY Viibryd 40 mg tablet 40 mg PO DAILY colestipol 1 gram tablet 1 tab PO DAILY albuterol sulfate 2.5 MG/NEB solution for nebulization 2.5 mg IH Q4H estradiol-norethindrone acet 1 EACH patch semiweekly 1 patch TD .every 3 to 4 days Referrals Follow up/Referrals: Adriana King APRN [Primary Care Provider] - See instructions Activity Restrictions/Add. Instructions Additional Instructions/Restrictions: Drink plenty of fluids. Take tylenol or ibuprofen for pain or fever. Take the medications as directed. Follow up with your regular doctor. GO TO THE ER FOR ANY WORSENING SYMPTOMS Throw your tooth brush away and get a new one. Quarantine until you know the results of your covid-19 test. Notify your school or workplace of your results and follow their instructions regarding return to work/school. Don't start the oral steroids until tomorrow, since you had the shot here today. The cough medication (promethazine dm) will make you drowsy, so don't drive or operate heavy machinery after taking it. The pyridium will make your urine turn orange, this is an expected side effect. It will stain your clothes if it comes into contact with them. We will culture the urine. That will tell what bacteria is causing your infection and which antibiotics will treat it best. Sometimes the first antibiotic we prescribe turns out to not work against different bacteria. So, make sure you follow up within 3 days if you are not getting better. Clinical Impressions Clinical Impression: Strep throat Instructions Patient Instructions: Strep Throat, DI for Strep Throat Discharge ED Provider: Edin Stanley [place] HPI General Stated complaint: Left earache,Sore throat Time Seen by Provider: 10/14/22 09:07 History of Present Illness Provider Complaint: She c/o sore throat, fever, and malaise for the past 2 days. Related Data Home Medications Medication Instructions Recorded Confirmed budesonide-formoterol HFA 160 1 aer INHALATION DAILY COPD 30 11/09/17 03/21/22 mcg-4.5 mcg/actuation aerosol days ##10 inhaler albuterol sulfate 2.5 mg/3 mL 2.5 mg inhalation Q4H ALLERGIES 07/25/18 03/21/22 (0.083 %) solution for nebulization lamotrigine 200 mg tablet,extended 1 tab PO DAILY Depression 03/27/21 03/21/22 release 24 hr levomefolate calcium 15 mg tablet 1 tab PO DAILY Depression 03/27/21 03/21/22 colestipol 1 gram tablet 1 tab PO DAILY Cholesterol 03/07/22 03/21/22 vilazodone 40 mg tablet (Viibryd) 40 mg PO DAILY Depression 03/07/22 03/21/22 estradiol 0.05 mg-norethindrone 1 patch transdermal .every 3 to 4 03/21/22 03/21/22 0.14 mg/24 hr semiwkly transderm days Depression patch Previous Rx's Medication Instructions Recorded amoxicillin 875 mg tablet 875 mg PO Q12H #20 tabs 10/14/22 benzonatate 100 mg capsule 100 mg PO TIDP PRN Cough #30 caps 10/14/22 methylprednisolone 4 mg tablets in 4 mg PO DIRECTED #21 tabs 10/14/22 a dose pack Allergies Allergy/AdvReac Type Severity Reaction Status Date / Time No Known Allergies Allergy Verified 03/07/22 15:35 [facility] Disclaimer: The information contained in this section may have been updated after the patient was seen, as this information can be updated by other users. Medical History (Revie
[2022-10-14 09:10] VITALS: BP 126/79; PULSE 82; RESP 20; TEMP 36.8; O2SAT 97; BMI 27.4
[2022-10-14 09:24] LABS: UTC Strep Screen (Rapid) Positive (Negative)
[2022-10-14 09:27] VITALS: BP 126/79; PULSE 82; RESP 20; TEMP 36.8; O2SAT 97
== END 2022-10-14 10:19 | disposition home or self-care (01) ==
PROVIDERS: Emergency Provider Nurse Practitioner Family; PCP Nurse Practitioner Family
DX: J02.0 Streptococcal pharyngitis (principal)
CPT/HCPCS: 87880; 96372; 99212; 99213; G0463

== ENCOUNTER 2023-03-22 17:02 | Emergency (ER) | payer BC, SELFPAY ==
[2023-03-22] VITALS (8 sets, daily range): BP systolic 59–96; BP diastolic 35–56; PULSE 60–79; RESP 16; TEMP 36.8; O2SAT 96–100; BMI 29.2
--- NOTE | 2023-03-22 17:27 | PC.NURSE ---
jone arms and hands cleaned with hibiclens and saline
--- NOTE | 2023-03-22 17:28 | PC.NURSE ---
YAAKOV PERALES at
--- NOTE | 2023-03-22 17:36 | PC.NURSE ---
gave pt starry night soda with ice nothing else needed at this time, visitor at bedside
--- NOTE | 2023-03-22 17:36 | HMH.EDANIB ---
Discharge Plan Disposition Patient Disposition: Home, Self-Care Prescriptions Prescriptions: New amoxicillin-pot clavulanate 875-125 mg tablet 1 tab PO Q12H Qty: 20 0RF No Action budesonide-formoterol 160-4.5 mcg/actuation HFA aerosol inhaler 1 aer INHALATION DAILY 30 Days Qty: 10 Label Comments: lamotrigine 200 mg tablet extended release 24hr 1 tab PO DAILY levomefolate calcium 15 mg tablet 1 tab PO DAILY Viibryd 40 mg tablet 40 mg PO DAILY colestipol 1 gram tablet 1 tab PO DAILY albuterol sulfate 2.5 MG/NEB solution for nebulization 2.5 mg IH Q4H estradiol-norethindrone acet 1 EACH patch semiweekly 1 patch TD .every 3 to 4 days amoxicillin [amoxicillin] 875 mg tablet 875 mg PO Q12H Qty: 20 0RF benzonatate [benzonatate] 100 mg capsule 100 mg PO TIDP PRN (Reason: Cough) Qty: 30 0RF methylprednisolone 4 mg Tablets,Dose Pack 4 mg PO DIRECTED Qty: 21 0RF Referrals Follow up/Referrals: Adriana King APRN [Primary Care Provider] - See instructions Activity Restrictions/Add. Instructions Additional Instructions/Restrictions: Please return to the emergency department immediately if you notice any worsening. You will need to go through the rabies immunization series. This requires several shots against rabies. You received your first shot here in the emergency department today but you will have to return to the first floor outpatient treatment center of this hospital to receive your subsequent shots. I have also prescribed you some Augmentin which is an antibiotic to prevent infection of your wounds. It is unsafe to suture your dog bite wounds because the risk of infection is too high. Keep your wounds clean and dry. You can wash your hands briefly and then you need to pat the wound dry again. You can take [id number] Tylenol and/or Motrin for your pain. Clinical Impressions Clinical Impression: Dog bite of arm Qualifiers: Encounter type: initial encounter Laterality: unspecified laterality Qualified Code(s): S41.159A - Open bite of unspecified upper arm, initial encounter Instructions Patient Instructions: How to Care for a Domestic Animal Bite, Animal Bites Discharge ED Provider: Kelly Henley Animal Bite HPI General Chief Complaint: Animal Bite Stated Complaint: AO 03/22/23 16:08 Dog bite ib both arms Time Seen by Provider: 03/22/23 17:26 Mode of Arrival: Ambulatory Source of Information: Patient Limitations: No Limitations Description of Symptoms (Recalled from ER Triage Doc. by RN): multiple puncture wounds to jone hands and forearms r/t dog bites. Pt reports she was trying to break up two dogs that were fighting. Pt reports possibly stray dogs, states she was on her way home from work and seen them fighting so tried to break them up. NO active bleeding at this time. Pt reports feeling nauseated. Pt reports did take 1 tablet of percocet 5mg dredge captain. History of Present Illness HPI narrative: The patient presents to the emergency department after having been bitten by several stray dogs who were fighting. The patient tried to break the animals apart during the fight and got bitten in the process. There is no way to monitor the health of these animals. The patient is unsure of her last tetanus immunization. Related Data Home Medications Medication Instructions Recorded Confirmed budesonide-formoterol HFA 160 1 aer INHALATION DAILY COPD 30 11/09/17 03/21/22 mcg-4.5 mcg/actuation aerosol days ##10 inhaler albuterol sulfate 2.5 mg/3 mL 2.5 mg inhalation Q4H ALLERGIES 07/25/18 03/21/22 (0.083 %) solution for nebulization lamotrigine 200 mg tablet,extended 1 tab PO DAILY Depression 03/27/21 03/21/22 release 24 hr levomefolate calcium 15 mg tablet 1 tab PO DAILY Depression 03/27/21 03/21/22 colestipol 1 gram tablet 1 tab PO DAILY Cholesterol 03/07/22 03/21/22 vilazodone 40 mg tablet (Viibryd) 40 mg PO DAILY Depression
--- NOTE | 2023-03-22 18:31 | PC.NURSE ---
charge nurse at bedside dressing wounds, then pt is ready for discharge nothing needed at this time
--- NOTE | 2023-03-22 18:37 | PC.NURSE ---
puncture wounds to jone hands and arms, areas cleaned again with hibiclens and saline, bacitracin applied to all areas, dry non-stick dressing applied.
--- NOTE | 2023-03-22 18:46 | PC.NURSE ---
notified ER MD of pt BP, verbal order for IVF bolus given. VS cycling [id number] at this time. Pt mentating appropriately. Pt dizzy upon sitting up on the side of the bed
--- NOTE | 2023-03-22 19:05 | PC.NURSE ---
shift change report given to bernardinorn
== END 2023-03-22 19:45 | disposition home or self-care (01) ==
LOC: ER 17:38
PROVIDERS: Emergency Provider Emergency Medicine; PCP Nurse Practitioner Family
DX: S61.451A Open bite of right hand, initial encounter (principal); S61.452A Open bite of left hand, initial encounter; S51.851A Open bite of right forearm, initial encounter; S51.852A Open bite of left forearm, initial encounter; R11.0 Nausea; F41.9 Anxiety disorder, unspecified; J45.909 Unspecified asthma, uncomplicated; F32.A Depression, unspecified; G43.909 Migraine, unspecified, not intractable, without status migrainosus; W54.0XXA Bitten by dog, initial encounter; I95.9 Hypotension, unspecified; Z23 Encounter for immunization
CPT/HCPCS: 90375; 90471; 90675; 90715; 96360; 96372; 99285

== ENCOUNTER 2023-03-25 10:08 | Outpatient (CLI) | payer BC, SELFPAY ==
[2023-03-25 10:40] VITALS: BP 121/57; PULSE 86; RESP 18; TEMP 36.7; O2SAT 99
== END 2023-03-25 11:08 | disposition home or self-care (01) ==
LOC: INF 10:09
PROVIDERS: PCP Nurse Practitioner Family; Visit Provider Emergency Medicine
DX: S41.159A Open bite of unspecified upper arm, initial encounter (principal); Z29.14 Encounter for prophylactic rabies immune globulin; W54.0XXA Bitten by dog, initial encounter
CPT/HCPCS: 90675; 96372

== ENCOUNTER 2023-03-29 11:27 | Outpatient (CLI) | payer BC, SELFPAY ==
[2023-03-29 11:39] VITALS: BP 138/77; PULSE 76; RESP 18; O2SAT 99
== END 2023-03-29 11:46 | disposition home or self-care (01) ==
LOC: INF 11:27
PROVIDERS: PCP Nurse Practitioner Family; Visit Provider Neurological Surgery
DX: S41.151A Open bite of right upper arm, initial encounter (principal); S41.152A Open bite of left upper arm, initial encounter; Z29.14 Encounter for prophylactic rabies immune globulin; W54.0XXA Bitten by dog, initial encounter
CPT/HCPCS: 90675; 96372

== ENCOUNTER → 2023-06-27 15:47 | Outpatient (CLI) | payer BC, SELFPAY | PROVIDERS: PCP Nurse Practitioner Family; Visit Provider Nurse Practitioner Family | DX: J02.9 Acute pharyngitis, unspecified (principal) | CPT/HCPCS: 87070 ==

== ENCOUNTER 2023-12-03 15:15 | Outpatient (CLI) | payer BC, SELFPAY ==
--- NOTE | 2023-12-03 15:17 | XR_ITS ---
FINAL REPORT TECHNIQUE: Chest PA & Lateral CLINICAL HISTORY: asthma COMPARISON: 03/21/2022 FINDINGS: 2 views of the chest were performed. The heart size is normal. The mediastinum is within normal limits. There is no acute cardiopulmonary process. There is some scarring in the left infrahilar region. There are no pleural effusions. There is no pneumothorax. The bony thorax appears intact. No significant changes noted since the prior chest x-ray of March 2022. IMPRESSION: No acute cardiopulmonary process. Reviewed, Interpreted and Dictated by Param Agustin MD Transcribed by Daisy Gibson Authenticated and [facility]
== END 2023-12-03 23:59 ==
LOC: RAD 15:15
PROVIDERS: PCP Nurse Practitioner Family; Visit Provider Nurse Practitioner Family
DX: R05.1 Acute cough (principal)
CPT/HCPCS: 71046

== ENCOUNTER 2024-07-30 14:30 | Emergency (ER) | payer BC, SELFPAY ==
[2024-07-30 15:00] VITALS: BP 120/70; PULSE 88; RESP 20; TEMP 36.8; O2SAT 99; BMI 30.9
--- NOTE | 2024-07-30 15:14 | ED_ITS ---
Discharge Plan Disposition Patient Disposition: Home, Self-Care Condition: Good Prescriptions Prescriptions: New fluticasone propionate [Flonase Allergy Relief] 50 mcg/actuation spray,suspension 1 - 2 spray intranasal DAILY Qty: 16 0RF Rx Instructions: administer into each nostril daily azithromycin [Zithromax Z-Yonatan] 250 mg tablet See Rx Instructions .ROUTE .COMPLEX 5 Days Qty: 6 0RF Rx Instructions: For 250 mg dose pack: take 500 mg today (day 1), then 250 mg for 4 days (days 2-5) No Action colestipol 1 gram tablet 1 g PO BID 30 Days Qty: 60 2RF omeprazole 40 mg capsule,delayed release(DR/EC) 40 mg PO DAILY Qty: 90 2RF albuterol sulfate 90 mcg/actuation HFA aerosol inhaler 2 inh inhalation Q4-6H PRN (Reason: shortness of breath or wheezing) Qty: 6.7 3RF losartan 25 mg tablet See Rx Instructions .ROUTE .COMPLEX Qty: 90 0RF Dose Instruction: TAKE 1 TABLET BY MOUTH DAILY Rx Instructions: TAKE 1 TABLET BY MOUTH DAILY Referrals Follow up/Referrals: Adriana King APRN [Primary Care Provider] - See instructions Activity Restrictions/Add. Instructions Additional Instructions/Restrictions: *Monitor Temp, Over the counter Motrin or Tylenol as directed/as needed Tylenol every 4 hours and Motrin every 6 hours (as long as your family doctor has told you that you can take it) for fever or pain. and straight to ER if unable to lower temp less than 101.0 after medication given *Warm salt water gargles may help to soothe the throat *Throat Lozenges? *Warm fluids like tea with honey may help to soothe the throat? *Sleep elevated *Humidifier/Vaporizer *Flonase 2 sprays in each nostril daily but be aware that it may take 2-3 days b efore you notice improvement Continue Follow up IMMEDIATELY for new or worsening symptoms or no Noticeable improvement over the next 48-72 hours. 911 for difficulty breathing or swallowing Clinical Impressions Clinical Impression: URI (upper respiratory infection) Qualifiers: URI type: unspecified URI Qualified Code(s): J06.9 - Acute upper respiratory infection, unspecified Instructions Patient Instructions: DI for Allergic Rhinitis, Olopatadine Ophthalmic Print Language Print Language: Belarusian Discharge ED Provider: Dorina Carlin [facility] General Stated complaint: eyes itching, scratchy throat, ear pain Mode of Arrival: Ambulatory Source of Information: Patient Limitations: No Limitations Time Seen by Provider: 07/30/24 15:00 Description of Symptoms (Recalled from Triage Doc. by RN): PATIENT C/O SINUS PRESSURE X 5 DAYS HEENT Symptoms (Recalled from RN notes): Yes Resp Symptoms (Recalled from RN notes): No Skin Symptoms (Recalled from RN notes): No MS Symptoms (Recalled from RN notes): No Functional Status (Recalled from RN notes): WNL History of Present Illness Provider Complaint: Patient state that she has been having sinus pain and pressure for several days about 5 States today her eyes are itching and the pressure behind her eyes is making her ears hurt and feel full so she came in to get checked Related Data Previous Rx's ?Medication ?Instructions ?Recorded colestipol 1 gram tablet 1 g PO BID Cholesterol 30 days #60 12/03/23 tabs omeprazole 40 mg capsule,delayed 40 mg PO DAILY #90 caps 03/24/24 release albuterol sulfate 90 mcg/actuation 2 inh inhalation Q4-6H PRN 06/26/24 aerosol inhaler shortness of breath or wheezing #6.7 grams losartan 25 mg tablet See Rx Instructions .Route 07/24/24 .COMPLEX #90 tabs azithromycin 250 mg tablet See Rx Instructions PO .COMPLEX 5 07/30/24 (Zithromax Z-Yonatan) days #6 tabs fluticasone propionate 50 1 - 2 spray intranasal DAILY #16 07/30/24 mcg/actuation nasal grams spray,suspension (Flonase Allergy Relief) Allergies Allergy/AdvReac Type Severity Reaction Status Date / Time No Known Allergies Allergy Verified 07/01/24 09:09 Worker's Comp Is this a Worker's Comp case?: No [facility] Disclaimer: The information contained in this section may have been updated after the patient was seen, as this information can be updated by other users. Medical History Sore throat Asthma exacerbation Acute cough Dog bite of arm Strep throat Cancer Depression Anxiety Migraine Asthma Atypical chest pain Chest pain Pleurisy Chest congestion Surgical History History of tubal ligation History of cholecystectomy Family History Family/Other Cancer Diabetes Stroke Heart attack Social History Smoking Status: Never smoker alcohol intake: never current occupational status: employed Travel in the last 8 weeks: None ROS Obtained: Yes All systems reviewed & no additional complaints except as documented and Yes Systems reviewed as appropriate & no additional complaints except as documented Constitutional Constitutional: Reports system reviewed and no additional complaints, except as documented, Reports as per HPI and Reports headache(s) ENT Ears, Nose, Mouth, and Throat: Reports system reviewed and no additional complaints, except as documented, Reports as per HPI, Reports otalgia, Reports headache(s), Reports sinus pain and Reports sinus pressure Cardiovascular Cardiovascular: Reports system reviewed and no additional complaints, except as documented and Reports as per HPI Respiratory Respiratory: Reports system reviewed and no additional complaints, except as documented and Reports as per HPI Gastrointestinal Gastrointestingal: Reports system reviewed and no additional complaints, except as documented and as per HPI Neurologic Neurologic: Reports headache(s) Physical Exam General General appearance: alert and in no apparent distress ENT ENT exam: Present mucous membranes moist Expanded ENT Exam Nose exam: Present sinus tenderness Respiratory Respiratory exam: Present normal lung sounds bilaterally; Absent respiratory distress or wheezes Cardiovascular Cardiovascular exam: Present regular rate, normal rhythm and normal heart sounds Neurological Exam Neurological exam: Present alert, oriented X3 and normal gait Medical Decision Making Medical Records Screening: Per USPSTF and CDC recommendations, given the prevalence of disease in our [facility], it is our hospital?s policy to screen for HIV and viral Hepatitis for all patients aged 18 and over and those with ongoing risk factors. Kareem Inquiry Pt receiving controlled substance: No Kareem was queried for this patient: No Vital Signs: 07/30/24 15:00 Temperature 98.2 F Temperature Source Oral Pulse Rate [Left Brachial] 88 Respiratory Rate 20 Blood Pressure [Left Arm] 120/70 Blood Pressure Mean [Left Arm] 86 Blood Pressure Source [Left Arm] Automatic Cuff Blood Pressure Position [Left Arm] Sitting 02 Sat by Pulse Oximetry 99 Oxygen Delivery Method Room Air
[2024-07-30] MEDS: cefTRIAXone 1GM VIAL 1 GM IM (15:29)
[2024-07-30] MEDS: LIDOCAINE 1% 5ML PF VIAL IM (15:29)
[2024-07-30] MEDS: METHYLPREDNISOLONE SOD SUCC 125MG VIAL 125 MG IM (15:29)
[2024-07-30 15:39] VITALS: BP 120/70; PULSE 88; RESP 20; TEMP 36.8; O2SAT 99
== END 2024-07-30 15:46 | disposition home or self-care (01) ==
PROVIDERS: Emergency Provider Nurse Practitioner; PCP Nurse Practitioner Family
DX: J06.9 Acute upper respiratory infection, unspecified (principal)
CPT/HCPCS: 96372; 99213; G0381; J0696; J2919

== ENCOUNTER 2024-11-27 15:40 | Outpatient (CLI) | payer BC, SELFPAY ==
--- NOTE | 2024-11-27 15:41 | MM_ITS ---
PROCEDURE INFORMATION: Exam: MG Bilateral Screening 3D Mammography Exam date and time: 11/27/2024 3:51 PM Age: 59 years old Clinical indication: Screening examination. TECHNIQUE: Imaging protocol: Bilateral Screening tomosynthesis and 2D mammography including computer-aided detection (CAD) when performed. COMPARISON: 1. MG MM MAMMO DIGITAL BREANNE SCREEN BILAT 07/22/2023 12:32 PM 2. MG MM MAMMO DIGITAL SCREENING W CAD BILAT 08/05/2019 4:10 PM FINDINGS: MAMMOGRAPHY: Breast composition: There are scattered areas of fibroglandular density. Mass: None. Architectural distortion: None. Calcifications: No suspicious calcifications. Asymmetric density: None. Skin thickening: None. Axillary adenopathy: None. IMPRESSION: No mammographic evidence of malignancy. Annual screening is recommended unless otherwise clinically indicated. ASSESSMENT: BI-RADS Category 1: Negative.
== END 2024-11-27 23:59 | disposition home or self-care (01) ==
LOC: RAD 15:41
PROVIDERS: PCP Nurse Practitioner Family; Visit Provider Nurse Practitioner Family
DX: Z12.31 Encounter for screening mammogram for malignant neoplasm of breast (principal)
CPT/HCPCS: 77063; 77067

== ENCOUNTER 2024-11-30 13:41 | Outpatient (CLI) | payer BC, SELFPAY ==
--- NOTE | 2024-11-30 13:43 | XR_ITS ---
FINAL REPORT CLINICAL HISTORY: dorsalgia possible bulging disc pain starting 11/18/24 FINDINGS: AP, lateral, and oblique views of the lumbar spine were obtained. There is no acute fracture or acute malalignment. Vertebral body height is preserved. There is no significant disc space narrowing. There are anterior osteophytes at several levels. No acute paraspinal abnormality is identified. IMPRESSION: No acute osseous abnormalities lumbar spine. Reviewed, Interpreted and Dictated by Keisha Wise MD Transcribed by Lety Saavedra Authenticated and [facility]
== END 2024-11-30 23:59 | disposition home or self-care (01) ==
LOC: RAD 13:41
PROVIDERS: PCP Nurse Practitioner Family; Visit Provider Nurse Practitioner Family
DX: M54.50 Low back pain, unspecified (principal); M51.369 Other intervertebral disc degeneration, lumbar region without mention of lumbar back pain or lower extremity pain
CPT/HCPCS: 72110

== ENCOUNTER 2024-12-03 07:44 | Outpatient (CLI) | payer BC, SELFPAY ==
--- NOTE | 2024-12-03 07:45 | MR_ITS ---
FINAL REPORT TECHNIQUE: Multiplanar and multisequence imaging of the lumbar spine was obtained without contrast. CLINICAL HISTORY: dorsalgia of lumbar spine, lumbar spurring right sided lbp COMPARISON: None FINDINGS: There is normal alignment of the lumbar vertebral bodies. Vertebral body height is preserved. The spinal cord ends at the level of L1. There is normal signal intensity within the substance of the distal spinal cord. No acute bone marrow edema or pathologic marrow replacement. There is a T2 hyperintense lesion in the right lobe of the liver which likely represents a hepatic cyst. No acute paraspinal abnormality is identified. L1-2: There is no focal disc herniation, central canal stenosis or neuroforaminal narrowing. L2-3: There is no focal disc herniation, central canal stenosis or neuroforaminal narrowing. L3-4: Annular disc bulge with degenerative endplate changes and facet osteoarthropathy. No central canal stenosis. Mild left neuroforaminal narrowing. L4-5: Mild facet osteoarthropathy. No central canal stenosis or neuroforaminal narrowing. L5-S1: There is no focal disc herniation, central canal stenosis or neuroforaminal narrowing. IMPRESSION: No acute process. Mild degenerative disease at L3-4 Reviewed, Interpreted and Dictated by Keisha Wise MD Transcribed by Annia Camarillo Authenticated and [facility]
== END 2024-12-03 23:59 | disposition home or self-care (01) ==
LOC: RAD 07:44
PROVIDERS: PCP Nurse Practitioner Family; Visit Provider Nurse Practitioner Family
DX: M51.360 Other intervertebral disc degeneration, lumbar region with discogenic back pain only (principal)
CPT/HCPCS: 72148

== ENCOUNTER 2025-02-11 08:44 | Outpatient (CLI) | payer BC, SELFPAY ==
--- NOTE | 2025-02-11 09:00 | US_ITS ---
FINAL REPORT TECHNIQUE: Multiple transverse and longitudinal scans were performed of the right upper quadrant of the abdomen. CLINICAL HISTORY: Hepatic cyst COMPARISON: None FINDINGS: HEPATIC ULTRASOUND There is a cyst measuring 1.1 cm in greatest dimension seen along the margin of the right lobe of the liver. No intrahepatic duct dilatation is identified. No evidence of common bile duct dilatation is identified. Doppler exam shows normal directional flow within patent hepatic and portal veins. The gallbladder is surgically absent. No evidence of perihepatic fluid is identified. IMPRESSION: Hepatic cyst as above. Reviewed, Interpreted and Dictated by Param Agustin MD Transcribed by Shireen Murray Authenticated and [facility]
== END 2025-02-11 23:59 | disposition home or self-care (01) ==
LOC: RAD 08:45
PROVIDERS: PCP Orthopaedic Surgery; Visit Provider Nurse Practitioner Family
DX: K76.89 Other specified diseases of liver (principal)
CPT/HCPCS: 76705

== ENCOUNTER 2025-09-05 19:30 | Emergency (ER) | payer BC, SELFPAY ==
[2025-09-05 19:52] VITALS: BP 110/78; PULSE 100; RESP 15; TEMP 37.1; O2SAT 98; BMI 26.5
--- NOTE | 2025-09-05 20:15 | CT_ITS ---
PROCEDURE INFORMATION: Exam: CTA Chest With Contrast Exam date and time: 09/05/2025 8:55 PM Age: 60 years old Clinical indication: Chest pressure and other: Right sided pain with breathing TECHNIQUE: Imaging protocol: Computed tomographic angiography of the chest with contrast. Exam focused on the arteries. 3D rendering (Not supervised by radiologist): MIP and/or 3D reconstructed images were created by the technologist. Radiation optimization: All CT scans at this facility use at least one of these dose optimization techniques: automated exposure control; mA and/or kV adjustment per patient size (includes targeted exams where dose is matched to clinical indication); or iterative reconstruction. Contrast material: ISO; Contrast volume: 70 ml; Contrast route: INTRAVENOUS (IV); COMPARISON: CT CHEST WO CON 04/05/2022 3:11 PM FINDINGS: Pulmonary arteries: No pulmonary embolism. Aorta: No aortic aneurysm. No aortic dissection. Thyroid: The thyroid gland is normal. Lungs: 2.4 x 2.4 cm ground-glass opacity within the right lower lobe. Scattered pulmonary granulomas. Pleural spaces: No pneumothorax. No pleural effusion. Heart: Mild cardiomegaly. No pericardial effusion. Lymph nodes: No enlarged lymph nodes. Liver: Simple appearing right hepatic cyst. Bones/joints: Multilevel degenerative type changes of the spine. No acute osseous abnormality. Soft tissues: Unremarkable. IMPRESSION: 1. No pulmonary embolism. 2. There is a 2.4 cm ground-glass opacity within the right lower lobe, recommend correlation regarding infectious etiology and follow-up CT chest in 3 months or sooner document resolution. 3. Other findings as above.
--- OUTSIDE RECORDS SUMMARY | 2025-09-05 20:19 | XMS_ITS | Data Portability ---
Author Organization [facility] [place] [facility] Address [address] [place] [address] Care Team Providers Care Single End Sewer Name Role Phone HORTENCIA GALLO Primary Care Provider Assessment No assessment recorded. Plan of Treatment Reminders Order Date Submit Date Provider Last Modified By Organization Details Last Modified Time Details Appointments None record ed. Lab None record ed. Referral None record ed. Procedures None record ed. Surgeries None record ed. Imaging None record ed. Medication Orders None record ed. Patient TargetsNo targets recorded. Patient Instructions Encounter Date Encounter Id Patient Instructions Last Modified By Organization Details Last Modified Time 11/12/2022 [id number] 1. Laryngoscopy flex performed in office today. Full risks, complications, and benefits of non-operative intervention have been thoroughly discussed. Understanding was expressed, informed consent given, and we will proceed with the discussed treatment plan. There were no questions for me at the end of the office visit. 2. CT of neck with contrast ordered in office today. 3. Follow up in 4-6 weeks or sooner if concerns arise. [email or web address] Not available 11/12/2022 11:53:39 Reason for Referral None Reported. Results Created Date Observation Date Name Description Value Unit Range Abnormal Flag Note LastModifiedBy Organization Detail LastModifiedTime 11/20/1911/20/2022 CT, neck, soft tissu e, w/ contr ast No observ ation record ed. [email or web address] [facility] [address] [facility], [place], [address], 11/21/2022 08:13:46 02/12/2002/11/2025 US, liver No observ ation record ed. [email or web address] [facility] [address], [place], [address], 02/12/2025 12:13:03 Result Notes None recorded. Problems No Known Problems Procedures Surgical History Date Name Laterality Status Provider Name and Address Organization Details Recorded Time 11/12/19 Laryngoscopy Flex completed Estephania Shadi [facility] 11/12/2022 11:52:28 Imaging Results None recorded. Procedure Notes None recorded. Medical Equipment None Reported. Allergies No known drug allergies Medications Name Sig Start Date Stop Date Status Note LastModified by Organization Details LastModified Time Singulair 10 mg tablet Daily active Frequenc y: daily;Me dication Descript ion: monteluk ast; Dosage:1 ; Route:or al; refills: 5; Quantity :30 tablet Not Available Not Available Not Available Paxil 40 mg tablet Every morning 11/12 completed Frequenc y: qam;Medi cation Descript ion: paroxeti ne; Dosage:1 ; Route:or al; refills: 5; Quantity :30 tablet Not Available Not Available Not Available gabapenti n 300 mg capsule As Directed 11/12 completed Duration : 30 days;Ins truction s: take one after work and one qhs;Freq uency: as direct.; Medicati on Descript ion: gabapent in; Dosage:1 ; Route:or al; refills: 6; Quantity :60 capsule Not Available Not Available Not Available lisinopri l 5 mg tablet Bedtime 11/12 completed Duration : 30 days;Taye quency: hs;Medic ation Descript ion: lisinopr il; Dosage:1 ; Route:or al; refills: 5; Quantity :30 tablet Not Available Not Available Not Available ProAir HFA 90 mcg/actua tion aerosol inhaler As needed active Frequenc y: prn;Medi cation Descript ion: albutero l; Route:in halation ; refills: 0 Not Available Not Available Not Available Symbicort active Not Available Not Karyna ilable Not Available Vitals Date Recorded Body weight Body mass index (BMI) Body height Body temperature Heart rate Oxygen saturation Systolic And Diastolic Provider Name and Address Organization Details Last Updated DateTime 3 52272.7 8 g 29.3 kg/m2 157.48 cm 97.7 [degF] 77 /min 96 % 143/88 mm[Hg] Chicho Huerta [facility] 3 10:55:02 Social History None recorded. Functional Status Question Answer Note LastModified by Organizat ion Details LastModified Time What is your level of alcohol consumption? Occasional [email or web address] Information not available 11/12/2022 Mental Status None recorded. Family History Relationship Description Onset Age of this Age Resolved Age Notes LastModified by Organization Details LastModified Time Father Family history of malignant neoplasm lung [email or web address] Not available 11/12 10:55:24 Mother Asthma [email or web address] Not available 11/12/2022 10:55:32 Mother Acute stroke [email or web address] Not karyna ilable 11/12/2022 10:55:39 Brother Diabetes mellitus [email or web address] Not available 11/12 10:55:47 Medical History Condition Response Migraines Y Cancer Y Asthma Y Hypertension Y Gynecological HistoryNo gynecological history recorded. 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, treated with surgery and radiation in 2002 Has a sore throat 520262 002 J02.9 Health Concerns Section Related Observation LastModified by Organization Detai ls LastModified Time None Recorded Concern Status LastModified by Organization Details LastModified Time None Recorded Advance Directives Directive None Recorded Payers Insurance Date Sequence Insurance Name Policy Number Policy Arndt Covered Member ID Arndt Member ID Guarantor Name 03/29/2023 1 FLAVIA (PPO) [id number] Beth Smith [id number] Beth Smith Notes Date Note Type Note Provider Name and Address Organization Details Recorded Time 11/12/2022 text/html Beth is a 57 year old female comes in today for consultation at the request of Dr.Ardy Remy Gallo for an evaluation of a sore throat. Beth states that she has had an on and off sore throat for several months now. On October 14 she had strep throat and since then her sore throat has not gone away. 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 She mentions that she works at [employer] and does not wear hearing protection. SHANTI FARAH MD [address] [place] [address], [id number], [facility] 11/12/2022 15:39:43 OBGyn Episode No OBEpisode recorded.
--- OUTSIDE RECORDS SUMMARY | 2025-09-05 20:19 | XMS_ITS | Clinical Summary ---
Author Organization [facility] Address [address] [place] [address] Care Team Providers Care Disease Education Specialist Name Role Phone Adriana King APRN Primary Care Provider [phone] Social History Tobacco Use Types Packs/Day Years Used Date Smoking Tobacco: Never Assessed Abuse Screen Answer Date Recorded Unsafe at Home or Work/School Not on file Feels Threatened by Someone? Not on file Does Anyone Keep You from Co ntacting Others or Doint Things Outside the Home? Not on file 07/26/2023 Physical Sign of Abuse Present Not on file 1 Housing Stability Answer Date Recorded Current Living Arrangements Not on file 07/14 Potentially Unsafe Housing Conditions Not on ender e 07/26/2023 Family and Community Support Answer Selvin e Recorded Help with Day-to-Day Activities Not on file 07/26/2023 Lonely or Isolated Not on file 07/26/2023 Employment Answer Date Recorded Do you want help finding or keeping work or a waleska b? Not on file 07/26/2023 Disabilities Answer Date Recorded Concentrating, Remembering, or Making Decisions Difficulty Not on file 07/26/2023 Doing Errands Independently Difficulty Not on fi le 07/26/2023 Education Answer Date Recorded Help with school or training? Not on file Preferred Language Not on file 07/26/2023 Comments Unknown Sex and Gender Information Value Date Recorded Sex Assigned at Not on file Legal Sex Female 1:09 PM EST Gender Identity Not on file Sexual Orientation Not on file Plan of Treatment Health Maintenance Due Date Last Done Comments ANNUAL PHYSICAL 1965 Annual Gynecologic Pelvic and Breast Exam 1965 HEPATITIS C SCREENING 1965 TDAP/TD VACCINES (1 - Tdap) 1984 COLOGUARD 2010 COLON CANCER SCREENING 5 YEA R SIGMOIDOSCOPY 2010 COLONOSCOPY 2010 [address]AL CANCER SCREENING 2010 CT COLONOGRAPHY 2010 FECAL OCCULT BLOOD TEST 2010 FIT Testing (1 year) 2010 ZOSTER VACCINE (2 of 2) 09/24/2020 07/30/2020 Pneumococcal Vaccine 50+ (2 of 2 - PCV) 07/30/2021 1 MAMMOGRAM 08/05/2021 08/05/2019, 08/05/2019 INFLUENZA VACCINE 05/14/2025 07/30/2020 Insurance PPO Care Teams Disease Education Specialist Relationship Specialty Start Date End Date Adriana King APRN PCP - General Internal Medicine 11/12/22
[2025-09-05 20:20] LABS: Hematocrit 44.3 % (37.0-47.0); Hemoglobin 14.7 g/dL (12.2-16.2); Immature Granulocytes % 0.2 %; Mean Corpuscular HGB Conc 33.2 g/dL (31.8-35.4); Mean Corpuscular Hemoglobin 29.4 pg (27.0-31.2); Mean Corpuscular Volume 88.6 fl (81-99); Nucleated Red Blood Cells % 0 %; Platelet Count 281 K/mm3 (142-424); Red Blood Count 5.00 M/mm3 (4.20-5.40); Red Cell Distribution Width-SD 40.6 fL; White Blood Count 11.2 K/mm3 (4.8-10.8)
--- NOTE | 2025-09-05 20:25 | ECG_ITS ---
APPROVED REPORT Exam: Resting ECG HR:89 bpm ECG Measurements Heart Rate 89 AXES WY 131 P 59 QRSd 81 QRS -28 QT 333 T 71 QTc 379 Conclusion Normal sinus rhythm Left axis Normal intervals No STEMI Electronically signed by : Sreekanth Reyes, 09/05/2025 23:44:00
[2025-09-05 20:30] VITALS: BP 132/86; PULSE 88; O2SAT 96
[2025-09-05] MEDS: MORPHINE 4MG/ML SYRINGE 4 MG IV (20:34)
[2025-09-05 20:46] LABS: Troponin I < 0.01 ng/ml (0.00-0.034)
[2025-09-05 20:47] LABS: Alanine Aminotransferase 24 U/L (12-78); Albumin Level 4.7 g/dl (3.5-5.0); Albumin/Globulin Ratio 1.5 (1.1-1.8); Alkaline Phosphatase 94 U/L (38-126); Anion Gap 11.1 mEq/L (5-15); Aspartate Amino Transferase 31 U/L (14-36); Bilirubin,Total 0.6 mg/dl (0.2-1.3); Blood Urea Nitrogen 16 mg/dl (7-17); Calcium 9.8 mg/dl (8.4-10.2); Carbon Dioxide 24 mmol/L (22.0-30.0); Chloride 102 mmol/L (98-107); Creatinine Clearance Estimated 78 mL/min (50-200); Creatinine,Serum 0.80 mg/dl (0.52-1.04); Estimated Glomerular Filt Rate 73 ml/min (>60); GFR (African American) 89 ML/MIN (>60); Globulin 3.2 g/dL (1.3-3.2); Glucose 107 mg/dl (74-100); Potassium 4.1 mmoL/L (3.5-5.1); Sodium 133 mmol/L (136-145); Total Protein,Serum 7.9 g/dl (6.3-8.2)
[2025-09-05] MEDS: 0.9 % SODIUM CHLORIDE 50 ML VIAL IV (20:56)
[2025-09-05] MEDS: SODIUM CHLORIDE 0.9% 10ML SYR (RAD ONLY) 10 ML IV (20:57)
[2025-09-05] MEDS: IOPAMIDOL-370 (76%);100ML BOTTLE 75 ML IV (20:57)
--- NOTE | 2025-09-05 21:23 | [facility].EDCP ---
Discharge Plan Disposition Patient Disposition: Home, Self-Care Condition: Good Prescriptions Prescriptions: New amoxicillin 500 mg capsule 1,000 mg PO TID 5 Days Qty: 30 0RF azithromycin [Zithromax] 250 mg tablet 250 mg PO DAILY 4 Days Qty: 4 0RF Rx Instructions: start on day 2 of therapy No Action Airsupra 90-80 mcg/actuation HFA aerosol inhaler 2 inh inhalation 6XD PRN (Reason: wheezing and shortness of breath) Qty: 10.7 0RF triamcinolone acetonide 0.1 % cream 1 applic topical TID 10 Days Qty: 80 0RF omeprazole 40 mg capsule,delayed release(DR/EC) 40 mg PO DAILY tirzepatide (weight loss) 7.5 mg/0.5 mL pen injector 7.5 mg SQ WEEKLY 30 Days Qty: 2.5 1RF cetirizine [Allergy Relief (cetirizine)] 10 mg tablet 10 mg PO DAILY PRN cholecalciferol (vitamin D3) 25 mcg (1,000 unit) capsule 25 mcg PO DAILY famotidine 40 mg tablet 40 mg PO HS Qty: 30 2RF albuterol sulfate 90 mcg/actuation HFA aerosol inhaler 2 inh inhalation Q4-6H PRN (Reason: shortness of breath or wheezing) Qty: 6.7 3RF Referrals Follow up/Referrals: Adriana King APRN [Primary Care Provider, Medical] - See instructions Activity Restrictions/Add. Instructions Additional Instructions/Restrictions: There was a cyst on your liver, discuss further workup with your PCP. They advised repeating your CT scan of the chest in 3 months. Print Language Print Language: [place] Discharge ED Provider: Sreekanth Reyes <JUAN DANIEL Wasserman - Last Filed: 09/05/25 22:36> General Chief Complaint: Shortness of Breath/Dyspnea Stated Complaint: soa, right side pain, chills Time Seen by Provider: 09/05/25 20:08 Mode of Arrival: Ambulatory Source of Information: Patient Description of Symptoms (Recalled from ER Triage Doc. by RN): Patient ambualtory to ED with complaints of SOA, and right side thoracic pain. Patient states that the pain increases significantly when she takes a deep breath in. She reports that last night she started getting chills, to which she would be cold then hot. Patient self medicated at home with tylenol approx 1900. Denies O2 use at home, denies cough or sick contacts. History of Present Illness HPI narrative: Patient presents complaining of right sided chest pain with breathing. Denies any dyspnea or cough. She reports the pain started suddenly this evening at 7:00. She does have a history of pleurisy which seem similar, however that has been quite sometime. Patient did travel to [place] within the last week. Denies any hemoptysis, edema, hormone therapy, malignancy, recent surgery. Denies any fever. She does report some chills. Duration: constant Activity at onset: during rest Pain location: right chest Severity: moderate Exacerbating factors: inspiration Context: recent travel Treatments prior to or on arrival for Cardiac Chest Pain: other (tylenol ) Related Data Home Medications ?Medication ?Instructions ?Recorded ?Confirmed cetirizine 10 mg tablet (Allergy 10 mg PO DAILY PRN 06/08/25 08/09/25 Relief (cetirizine)) cholecalciferol (vitamin D3) 25 25 mcg PO DAILY 06/08/25 08/09/25 mcg (1,000 unit) capsule omeprazole 40 mg capsule,delayed 40 mg PO DAILY 06/28/25 08/09/25 release Previous Rx's ?Medication ?Instructions ?Recorded albuterol 90 mcg-budesonide 80 2 inh inhalation 6XD PRN wheezing 08/18/24 mcg/actuation HFA aerosol inhaler and shortness of breath #10.7 grams (Airsupra) triamcinolone acetonide 0.1 % 1 applic topical TID 10 days #80 05/31/25 topical cream grams famotidine 40 mg tablet 40 mg PO HS #30 tabs 06/08/25 tirzepatide (weight loss) 7.5 7.5 mg (0.5 mL) SQ WEEKLY 30 days 06/28/25 mg/0.5 mL subcutaneous pen injector #2.5 mL albuterol sulfate 90 mcg/actuation 2 inh inhalation Q4-6H PRN 09/03/25 aerosol inhaler shortness of breath or wheezing #6.7 grams amoxicillin 500 mg capsule 1,000 mg (2 x 500 mg) PO TID 5 09/05/25 days #30 caps azithromycin 250 mg tablet 250 mg PO DAILY 4 days #4 tabs 09/05/25 (Zithromax) Allergies Allergy/AdvReac Type Severity Reaction Status Date / Time No Known Allergies Allergy Verified 08/09/25 10:42 PFS <JUAN DANIEL Wasserman - Last Filed: 09/05/25 22:36> [facility] Disclaimer: The information contained in this section may have been updated after the patient was seen, as this information can be updated by other users. Medical History Pharyngitis Vocal cord edema Hoarseness Globus sensation Sore throat Asthma exacerbation Acute cough Dog bite of arm Strep throat Cancer Depression Anxiety Migraine Asthma Atypical chest pain Chest pain Pleurisy Chest congestion Surgical History History of vocal cord polypectomy History of tubal ligation History of cholecystectomy Family History Family/Other Cancer Diabetes Stroke Heart attack Social History Smoking Status: Never smoker alcohol intake: current alcohol intake frequency: holidays/special occasions only substance use type: denies use current occupational status: employed and retired Travel in the last 8 weeks?: None Have you lived/traveled outside US in past 30 days?: No Contact w/someone who lives/traveled outside US past 30 days?: No Exposure to someone with infectious disease in past 14 days?: No Do you have a fever (greater than 100.4 F or 38 C)?: No Have you tested positive for COVID-19?: No Exposed to someone with COVID-19 in past 14 days?: No Do you have a sore throat?: No Do you have a cough?: No Do you have any weakness?: No Do you have any diarrhea?: No Are you experiencing any unusual bleeding?: No Do you have any muscle aches/pain?: No Do you have any abdominal pain?: No Are you experiencing loss of taste or smell?: No Other Medical History Have you received the Flu Vaccine for this season: Yes Have you received the Pneumonia Vaccine: Yes <JUAN DANIEL Wasserman - Last Filed: 09/05/25 22:36> ROS Obtained: Yes Systems reviewed as appropriate & no additional complaints except as documented Physical Exam <JUAN DANIEL Wasserman Last Filed: 09/05/25 22:36> General General appearance: alert and in no apparent distress Head Head exam: atraumatic and normocephalic Eye Eye exam: Present normal appearance and EOMI Chest Chest inspection: Present symmetric chest wall rise Respiratory Respiratory exam: Present normal lung sounds bilaterally; Absent wheezes or stridor Cardiovascular Cardiovascular exam: Present regular rate and normal rhythm; Absent systolic murmur Abdominal Exam Abdominal exam: Present soft; Absent distention, tenderness or guarding Extremities Exam Extremities exam: Present full ROM Neurological Exam Neurological exam: Present alert and oriented X3 Psychiatric Psychiatric exam: Present normal affect and normal mood Skin Skin exam: Present warm, dry and intact HEART Score <JUAN DANIEL Wasserman Last Filed: 09/05/25 22:36> HEART Score HEART Score assessment performed?: Yes History (anamnesis): Slightly suspicious ECG: Normal Age: 45-65 years Risk factors: No known risk factors Troponin: </= normal limit HEART Score: 1 <Sreekanth Reyes DO - Last Filed: 09/05/25 23:07> HEART Score HEART Score: 1 Critical Care <JUAN DANIEL Wasserman Last Filed: 09/05/25 22:36> Critical Care Time Critical Care Time: No Medical Decision Making <JUAN DANIEL Wasserman Last Filed: 09/05/25 22:36> [place] Inquiry Pt receiving controlled substance: No Vital Signs Vital Signs: 09/05/25 19:52 09/05/25 20:30 09/05/25 22:08 Temperature 98.7 F Temperature Source Oral Pulse Rate 88 Pulse Rate [Right] 100 H Respiratory Rate 15 Blood Pressure 132/86 Blood Pressure [Right Arm] 110/78 Blood Pressure Mean 101 Blood Pressure Mean [Right Arm] 88 Blood Pressure Source [Right Arm] Automatic Cuff Blood Pressure Position [Right Arm] Sitting 02 Sat by Pulse Oximetry 98 96 98 Oxygen Delivery Method Room Air Room Air 09/05/25 22:59 Temperature 97.9 F Temperature Source Oral Pulse Rate 74 Pulse Rate [Right] Respiratory Rate 18 Blood Pressure 118/78 Blood Pressure [Right Arm] Blood Pressure Mean Blood Pressure Mean [Right Arm] Blood Pressure Source [Right Arm] Blood Pressure Position [Right Arm] 02 Sat by Pulse Oximetry Oxygen Delivery Method Room Air Lab Data Labs: Lab Results 09/05/25 20:11: WBC 11.2 H, RBC 5.00, Hgb 14.7, Hct 44.3, MCV 88.6, MCH 29.4, MCHC 33.2, RDW 12.5, Plt Count 281, MPV 11.1 H, Neut % (Auto) 69.3, Lymph % (Auto) 19.0, [place] % (Auto) 9.7 H, Eos % (Auto) 1.3, Baso % (Auto) 0.5, Neut # (Auto) 7.8, Lymph # (Auto) 2.1, [place] # (Auto) 1.1 H, Eos # (Auto) 0.1, Baso # (Auto) 0.1, Sodium 133 L, Potassium 4.1, Chloride 102, Carbon Dioxide 24, Anion Gap 11.1, BUN 16, Creatinine 0.80, Estimated Creat Clear 78, Estimated GFR 73, Est GFR ( Amer) 89, Glucose 107 H, Calcium 9.8, Total Bilirubin 0.6, AST 31, ALT 24, Alkaline Phosphatase 94, Troponin I < 0.01, Total Protein 7.9, Albumin 4.7, Globulin 3.2, Albumin/Globulin Ratio 1.5 09/05/25 20:11 09/05/25 20:11 Response Orders (Tests/Meds): ED MEDICATIONS Generic Name Dose Route Start Last Admin Trade Name Frezbigniew PRN Reason Stop Dose Admin Sodium Chloride 10 ml 09/05/25 20:55 09/05/25 20:57 Sodium Chloride 0.9% 10ml Syr (Rad Only) IV 10/05/25 20:54 10 ml NEEDED PRN Administration Maintain IV Site Discontinued Medications Generic Name Dose Route Start Last Admin Trade Name Freq PRN Reason Stop Dose Admin Amoxicillin 1,000 mg 09/05/25 22:32 09/05/25 22:57 Amoxicillin 500mg Capsule PO 09/05/25 22:33 1,000 mg ONCE ONE Administration Azithromycin 500 mg 09/05/25 22:32 09/05/25 22:57 Azithromycin 250mg Tablet PO 09/05/25 22:33 500 mg ONCE ONE Administration Iopamidol 75 ml 09/05/25 20:55 09/05/25 20:57 Iopamidol-370 (76%);100ml Bottle IV 09/05/25 20:56 75 ml ONCE ONE Administration Morphine Sulfate 4 mg 09/05/25 20:17 09/05/25 20:34 Morphine 4mg/Ml Syringe IV 09/05/25 20:18 4 mg ONCE ONE Administration Sodium Chloride 50 ml 09/05/25 20:55 09/05/25 20:56 0.9 % Sodium Chloride 50 Ml Vial IV 09/05/25 20:56 50 ml ONCE ONE Administration ORDERS Category Date Time Status CTA Chest [CT angio chest PE protocol] Stat Cat Scan 09/05/25 20:15 Completed CBC w/Auto Diff [Complete Blood Count Auto Diff] Stat Lab 09/05/25 20:11 Completed CMP [Comprehensive Metabolic Panel] Stat Lab 09/05/25 20:11 Completed Trop I [Troponin I] Stat Lab 09/05/25 20:11 Completed Troponin I Q3H Lab 09/05/25 23:15 Ordered Troponin I Q3H Lab 09/06/25 02:15 Ordered MDM Narrative Medical Decision Narrative: In summary patient is a 60-year-old female who presents the emergency department for evaluation of right sided chest. Patient is hemodynamically stable upon arrival, afebrile. Unremarkable physical exam. Differential diagnosis includes pulmonary embolism, pneumonia, pleurisy, chest wall pain. No tenderness of the right upper quadrant of the abdomen. initial workup will be conducted with hematologic labs, CTA chest. Initial inventions include morphine for pain control. Initial workup reviewed by al labs are unremarkable, CT shows ground glass opacity in the right lower lobe. This is the area patient indicates pain upon insipration. EKG and troponin negative. Upon repeat evaluation patient is resting comfortably. Given this patient will be discharged home with a prescription for antibiotics. Instructed to repeat the scan with her PCP in 3 months.. CTA chest IMPRESSION: 1. No pulmonary embolism. 2. There is a 2.4 cm ground-glass opacity within the right lower lobe, recommend correlation regarding infectious etiology and follow-up CT chest in 3 months or sooner document resolution. 3. Other findings as above. <Sreekanth Reyes DO - Last Filed: 09/05/25 23:07> Medical Records Medical records reviewed: Yes I reviewed the patient's medical records. Vital Signs Vital Signs: 09/05/25 19:52 09/05/25 20:30 09/05/25 22:08 Temperature 98.7 F Temperature Source Oral Pulse Rate 88 Pulse Rate [Right] 100 H Respiratory Rate 15 Blood Pressure 132/86 Blood Pressure [Right Arm] 110/78 Blood Pressure Mean 101 Blood Pressure Mean [Right Arm] 88 Blood Pressure Source [Right Arm] Automatic Cuff Blood Pressure Position [Right Arm] Sitting 02 Sat by Pulse Oximetry 98 96 98 Oxygen Delivery Method Room Air Room Air 09/05/25 22:59 Temperature 97.9 F Temperature Source Oral Pulse Rate 74 Pulse Rate [Right] Respiratory Rate 18 Blood Pressure 118/78 Blood Pressure [Right Arm] Blood Pressure Mean Blood Pressure Mean [Right Arm] Blood Pressure Source [Right Arm] Blood Pressure Position [Right Arm] 02 Sat by Pulse Oximetry Oxygen Delivery Method Room Air Lab Data Labs: Lab Results 09/05/25 20:11: WBC 11.2 H, RBC 5.00, Hgb 14.7, Hct 44.3, MCV 88.6, MCH 29.4, MCHC 33.2, RDW 12.5, Plt Count 281, MPV 11.1 H, Neut % (Auto) 69.3, Lymph % (Auto) 19.0, [place] % (Auto) 9.7 H, Eos % (Auto) 1.3, Baso % (Auto) 0.5, Neut # (Auto) 7.8, Lymph # (Auto) 2.1, [place] # (Auto) 1.1 H, Eos # (Auto) 0.1, Baso # (Auto) 0.1, Sodium 133 L, Potassium 4.1, Chloride 102, Carbon Dioxide 24, Anion Gap 11.1, BUN 16, Creatinine 0.80, Estimated Creat Clear 78, Estimated GFR 73, Est GFR ( Amer) 89, Glucose 107 H, Calcium 9.8, Total Bilirubin 0.6, AST 31, ALT 24, Alkaline Phosphatase 94, Troponin I < 0.01, Total Protein 7.9, Albumin 4.7, Globulin 3.2, Albumin/Globulin Ratio 1.5 Response Orders (Tests/Meds): ED MEDICATIONS Generic Name Dose Route Start Last Admin Trade Name Freq PRN Reason Stop Dose Admin Sodium Chloride 10 ml 09/05/25 20:55 09/05/25 20:57 Sodium Chloride 0.9% 10ml Syr (Rad Only) IV 10/05/25 20:54 10 ml NEEDED PRN Administration Maintain IV Site Discontinued Medications Generic Name Dose Route Start Last Admin Trade Name Freq PRN Reason Stop Dose Admin Amoxicillin 1,000 mg 09/05/25 22:32 09/05/25 22:57 Amoxicillin 500mg Capsule PO 09/05/25 22:33 1,000 mg ONCE ONE Administration Azithromycin 500 mg 09/05/25 22:32 09/05/25 22:57 Azithromycin 250mg Tablet PO 09/05/25 22:33 500 mg ONCE ONE Administration Iopamidol 75 ml 09/05/25 20:55 09/05/25 20:57 Iopamidol-370 (76%);100ml Bottle IV 09/05/25 20:56 75 ml ONCE ONE Administration Morphine Sulfate 4 mg 09/05/25 20:17 09/05/25 20:34 Morphine 4mg/Ml Syringe IV 09/05/25 20:18 4 mg ONCE ONE Administration Sodium Chloride 50 ml 09/05/25 20:55 09/05/25 20:56 0.9 % Sodium Chloride 50 Ml Vial IV 09/05/25 20:56 50 ml ONCE ONE Administration ORDERS Category Date Time Status CTA Chest [CT angio chest PE protocol] Stat Cat Scan 09/05/25 20:15 Completed CBC w/Auto Diff [Complete Blood Count Auto Diff] Stat Lab 09/05/25 20:11 Completed CMP [Comprehensive Metabolic Panel] Stat Lab 09/05/25 20:11 Completed Trop I [Troponin I] Stat Lab 09/05/25 20:11 Completed Troponin I Q3H Lab 09/05/25 23:15 Ordered Troponin I Q3H Lab 09/06/25 02:15 Ordered ECG Data Tracing #1: Attestation: I reviewed this ECG and interpreted as documented below: ECG Narrative: EKG personally interpreted by me demonstrates normal sinus rhythm at a rate of 89 bpm, normal axis, no [place] prolongation, narrow QRS, no QTc prolongation. No ST ovation or depression. No overt signs of ischemia or arrhythmia MDM Narrative Medical Decision Narrative: In summary patient is a 60-year-old female who presents the emergency department for evaluation of right sided chest. Patient is hemodynamically stable upon arrival, afebrile. Unremarkable physical exam. Differential diagnosis includes pulmonary embolism, pneumonia, pleurisy, chest wall pain. No tenderness of the right upper quadrant of the abdomen. initial workup will be conducted with hematologic labs, CTA chest. Initial inventions include morphine for pain control. Initial workup reviewed by me labs are unremarkable, CT shows ground glass opacity in the right lower lobe. This is the area patient indicates pain upon insipration. EKG and troponin negative. Upon repeat evaluation patient is resting comfortably. Given this patient will be discharged home with a prescription for antibiotics. Instructed to repeat the scan with her PCP in 3 months.. CTA chest IMPRESSION: 1. No pulmonary embolism. 2. There is a 2.4 cm ground-glass opacity within the right lower lobe, recommend correlation regarding infectious etiology and follow-up CT chest in 3 months or sooner document resolution. 3. Other findings as above. I was consulted by the DESHAWN, and we discussed the complexity of problems being addressed. I approved the treatment and management plan for this patient's care in the emergency department, thus performing a substantive portion of the medical decision making. Sreekanth Reyes, DO This is Dr. Reyes. I independently evaluated this patient and obtained collateral history. The patient tells me that over the last 2 to 3 days she has been experiencing intermittent hot and cold flashes with persistent chills as well as body aches. She states that over the last 24 hours she began experiencing chest pain within the right chest. She has not had any cough or production of phlegm. Workup was initiated with hematologic labs as well as a CTA of the chest. CT scan of the chest ultimately showed a 2.4 cm opacity in the right lower lobe that could be of infectious etiology. Given that the patient is having constitutional symptoms and has this opacity in her chest I do feel it is imperative to treat her for community-acquired pneumonia. We will treat her with amoxicillin as well as azithromycin. I have strongly advised the patient to follow-up with her primary care physician within 12 weeks to obtain a repeat CT scan to ensure that this is a resolved pneumonia instead of something more like a solid organ tumor. She millages understanding. This time all questions were answered and all parties were agreeable with the decision to discharge home
[2025-09-05 22:08] VITALS: O2SAT 98
[2025-09-05] MEDS: AZITHROMYCIN 250MG TABLET 500 MG PO (22:57)
[2025-09-05] MEDS: AMOXICILLIN 500MG CAPSULE 1000 MG PO (22:57)
[2025-09-05 22:59] VITALS: BP 118/78; PULSE 74; RESP 18; TEMP 36.6; O2SAT 99
== END 2025-09-05 23:23 | disposition home or self-care (01) ==
PROVIDERS: Physician Assistant; Emergency Provider Student in an Organized Health Care Education/Training Program; PCP Nurse Practitioner Family
DX: J18.9 Pneumonia, unspecified organism (principal); R07.1 Chest pain on breathing; R06.02 Shortness of breath
CPT/HCPCS: 71275; 80053; 84484; 85025; 93005; 96374; 99285; J2270; Q9967

== ENCOUNTER 2025-09-20 09:20 | Outpatient (CLI) | payer BC, SELFPAY ==
--- NOTE | 2025-09-20 09:22 | XR_ITS ---
PROCEDURE INFORMATION: Exam: XR Chest Exam date and time: 09/20/2025 9:24 AM Age: 60 years old Clinical indication: Cough and shortness of breath; Additional info: Abnormal chest x-ray TECHNIQUE: Imaging protocol: Radiologic exam of the chest. Views: 2 views. COMPARISON: CT ANGIO CHEST PE PROTOCOL 09/05/2025 8:55 PM FINDINGS: Lungs: 8 mm nodular density superimposed upon the right lung base is smaller in the hand the 2.[address] dated 09/05/2025. Streaky opacities in both lung bases. Lungs are hyperinflated. Pleural spaces: No pleural effusion. No pneumothorax. Heart/Mediastinum: No abnormalities. No cardiomegaly. No pulmonary vascular congestion. Bones/joints: Mild upper thoracic levoscoliosis. No fractures or focal bone lesions. IMPRESSION: Right lower lobe 8 mm nodular opacity at the site of previous, much larger pneumonia on 09/05/2025. Chest x-ray follow-up is recommended in 8-12 weeks to document complete resolution.
== END 2025-09-20 23:59 ==
LOC: RAD 09:21
PROVIDERS: PCP Nurse Practitioner Family; Visit Provider Nurse Practitioner Family
DX: J18.9 Pneumonia, unspecified organism (principal); M41.9 Scoliosis, unspecified
CPT/HCPCS: 71046

== ENCOUNTER 2025-09-23 12:10 | Day surgery (SDC) | payer BC, SELFPAY ==
--- NOTE | 2025-09-21 15:49 | EXP.HP ---
History of Present Illness *Admission Date: 09/23/25 *History of present illness: Mrs. Smith is a 60-year-old female who is here for diagnostic EGD. She was a referral from ENT (KEVIN Nixon) for intermittent choking and reflux. The patient did start Zepbound in August 2024. After each weekly shot she would have heartburn, reflux and food regurgitation on the 1st and 2nd day after the shot. She did stop this on August 30 and has had no recurrent symptoms and her reflux/regurgitation symptoms resolved. 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 She has had several laryngoscopy's but has never had an EGD. She has been on omeprazole and famotidine since her vocal cord surgery. As long as she stays on this, she has no symptoms. She reports no significant dysphagia but will have occasional choking. She reports no gassiness, bloating or belching. She does have regular bowel function but does have a tendency towards constipation. She thinks her last colonoscopy was 7 to 10 years ago. The examination is deemed medically necessary for diagnostic EGD. The patient has been seen, interviewed and examined prior to the procedure by both myself and the anesthesia provider. [facility] Disclaimer: The information contained in this section may have been updated after the patient was seen, as this information can be updated by other users. Medical History Pharyngitis Vocal cord edema Hoarseness Globus sensation Sore throat Asthma exacerbation Acute cough Dog bite of arm Strep throat Cancer Depression Anxiety Migraine Asthma Atypical chest pain Chest pain Pleurisy Chest congestion Surgical History History of vocal cord polypectomy History of tubal ligation History of cholecystectomy Family History Family/Other Cancer Diabetes Stroke Heart attack Social History Smoking Status: Never smoker alcohol intake: never substance use type: denies use current occupational status: retired Travel in the last 8 weeks?: None Have you lived/traveled outside US in past 30 days?: No Contact w/someone who lives/traveled outside US past 30 days?: No Exposure to someone with infectious disease in past 14 days?: No Do you have a fever (greater than 100.4 F or 38 C)?: No Have you tested positive for COVID-19?: No Exposed to someone with COVID-19 in past 14 days?: No Do you have a sore throat?: No Do you have a cough?: No Do you have any weakness?: No Do you have any diarrhea?: No Are you experiencing any unusual bleeding?: No Do you have any muscle aches/pain?: No Do you have any abdominal pain?: No Are you experiencing loss of taste or smell?: No Other Medical History Have you received the Flu Vaccine for this season: Yes Have you received the Pneumonia Vaccine: Yes Review of Systems Review of Systems Review of systems (narrative): Negative *Cardiovascular Comments: Negative *Gastrointestinal Comments: Negative *Genitourinary Comments: Negative *Musculoskeletal Comments: Negative *Neurologic Comments: Negative Meds Home Medications and Allergies Home Medications ?Medication ?Instructions ?Recorded ?Confirmed ?Type albuterol 90 mcg-budesonide 80 2 inh inhalation 6XD PRN wheezing 08/18/24 09/23/25 Rx mcg/actuation HFA aerosol inhaler and shortness of breath #10.7 grams (Airsupra) cholecalciferol (vitamin D3) 25 25 mcg PO DAILY 06/08/25 09/23/25 History mcg (1,000 unit) capsule famotidine 40 mg tablet 40 mg PO HS #30 tabs 06/08/25 09/23/25 Rx albuterol sulfate 90 mcg/actuation 2 inh inhalation Q4-6H PRN 09/03/25 09/23/25 Rx aerosol inhaler shortness of breath or wheezing #6.7 grams cetirizine 10 mg tablet (Allergy 10 mg PO DAILY 09/14/25 09/23/25 History Relief (cetirizine)) omeprazole 40 mg capsule,delayed 40 mg PO DAILY #30 caps 09/20/25 09/23/25 Rx release tirzepatide (weight loss) 5 mg/0.5 5 mg (0.5 mL) SQ WEEKLY 90 days 09/20/25 09/23/25 Rx mL subcutaneous pen injector #6.5 mL doxycycline hyclate 100 mg capsule 100 mg PO BID #20 caps 09/22/25 09/23/25 Rx New Prescriptions to Start Prescriptions: Allergies Allergy/AdvReac Type Severity Reaction Status Date / Time No Known Allergies Allergy Verified 09/20/25 08:25 Exam *Routine HEENT Exam Head: Present normocephalic Eye: Present EOMI and PERRL ENT: Present mucous membranes moist *Routine Neck Exam Neck: Present supple *Routine Respiratory Exam Respiratory: Present CTA bilaterally *Routine Cardiovascular Exam Cardiovascular: Present RRR *Routine Abdominal Exam Abdominal: Present soft and normoactive bowel sounds; Absent tenderness *Routine Rectal Exam Rectal:: deferred *Routine Genitalia Exam Genitalia:: deferred *Routine Extremities Exam Extremities: Absent cyanosis, clubbing or edema *Routine Skin Exam Skin: Present warm; Absent rash *Routine Neurological Exam Neurological: Present alert and oriented X3 Assessment and Plan *Assessment and plan (1) Choking due to food (regurgitated): Status: Acute Category: Medical Code(s): T17.320A - Food in larynx causing asphyxiation, initial encounter; [id number] - Food entering into or through a natural orifice, initial encounter (2) Regurgitation of food: Status: Acute Category: Medical Code(s): R11.10 - Vomiting, unspecified (3) Chronic GERD: Status: Acute Category: Medical Code(s): K21.9 - Gastro-esophageal reflux disease without esophagitis Plan A/P: 1. GERD with food regurgitation and choking due to regurgitated food is the preprocedural diagnosis. The patient will be anesthetized/sedated using MAC sedation. The patient has been seen and examined. Cardiac and lung assessment prior to the examination is stable. Proceed with planned diagnostic EGD.
[2025-09-22 15:49] VITALS: BMI 27.2
--- NOTE | 2025-09-23 07:00 | P.PCN_ITS ---
[facility] Procedure Note Date: 09/23/25 Time: 14:29 Procedure Note:: Upper Endoscopy Procedure Report: Esophagogastroduodenoscopy with cold biopsies and TTS balloon dilation Endoscopost: Jaswant Loja II, MD Referring Physician: KEVIN Williamson Date of Procedure: September 23, 2025 Equipment: Olympus GIF-1100 standard upper endoscope Sedation: MAC sedation Indications: Mrs. Smith is a 60-year-old female who is here for diagnostic EGD. She was a referral from ENT (KEVIN Nixon) for intermittent choking and reflux. The patient did start Zepbound in August 2024. After each weekly shot she would have heartburn, reflux and food regurgitation on the 1st and 2nd day after the shot. She did stop this on August 30 and has had no recurrent symptoms and her reflux/regurgitation symptoms resolved. 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 She has had several laryngoscopy's but has never had an EGD. She has been on omeprazole and famotidine since her vocal cord surgery. As long as she stays on this, she has no symptoms. She reports no significant dysphagia but will have occasional choking. She reports no gassiness, bloating or belching. She does have regular bowel function but does have a tendency towards constipation. She thinks her last colonoscopy was 7 to 10 years ago. The examination is deemed medically necessary for diagnostic EGD. Procedure: Prior to the procedure, a history and physical exam was performed, and patient's medications and allergies were reviewed. The risks, benefits and alternatives of the sedation and procedure were discussed with the patient. All questions were answered and informed consent was obtained. The patient was brought to the procedure room. Patient identification and proposed procedure were verified by the physician and the nurse. The patient was placed in a left lateral decubitus position and the scope was passed under direct vision. Throughout the procedure, the patient's blood pressure, pulse, and oxygen saturations were monitored continuously. The upper GI endoscopy was accomplished without difficulty. The patient tolerated the procedure well. Findings: The scope was passed directly into the upper esophagus and advanced to the third portion of the duodenum. The post bulbar duodenum, ampulla and duodenal bulb were normal with normal mucosa and conniventes. There was a small 3 mm nodule in the duodenal bulb that was removed via cold biopsy. 2 cold biopsies were taken from the second portion of the duodenum for the disaccharidase assay. The scope was withdrawn through a normal duodenal bulb and pylorus into the stomach. There was some mild linear antral gastropathy. The body and fundus of the stomach were normal. Upon retroflexion there was a 3 to 4 cm medium sized hiatal hernia. 2 cold biopsies were taken from the antrum. The scope was then withdrawn into the esophagus. There was no evidence of reflux esophagitis or Lazaro's. There were some tertiary contractions and evidence of mild esophageal dysmotility. There was also proximal esophageal web. The entire esophagus was dilated to 60 Filipino/20 mm with a TTS hydrostatic balloon with shattering of the proximal esophageal web. The remainder of the esophageal mucosa was normal. Impression: 1. Proximal esophageal web?dilation to 20 mm 2. Nonerosive GERD with mild esophageal dysmotility and medium sized hiatal hernia (3 to 4 cm) 3. Mild linear antral gastropathy 4. 3 mm duodenal bulb nodule (rule out Anamaria's gland hypertrophy) Plan: I will follow-up the biopsies and discuss the findings with the patient and family.
[2025-09-23 12:51] VITALS: BP 187/94; PULSE 82; RESP 18; TEMP 36.2; O2SAT 99
[2025-09-23] MEDS: LACTATED RINGERS 1000ML 1,000 ML 50 ML IV (12:57)
--- NOTE | 2025-09-23 14:16 | EXP.ANES.CKL ---
[facility] Disclaimer: The information contained in this section may have been updated after the patient was seen, as this information can be updated by other users. Medical History Pharyngitis Vocal cord edema Hoarseness Globus sensation Sore throat Asthma exacerbation Acute cough Dog bite of arm Strep throat Cancer Depression Anxiety Migraine Asthma Atypical chest pain Chest pain Pleurisy Chest congestion Surgical History History of vocal cord polypectomy History of tubal ligation History of cholecystectomy Family History Family/Other Cancer Diabetes Stroke Heart attack Social History Smoking Status: Never smoker alcohol intake: never substance use type: denies use current occupational status: retired Travel in the last 8 weeks?: None Have you lived/traveled outside [place] in past 30 days?: No Contact w/someone who lives/traveled outside [place] past 30 days?: No Exposure to someone with infectious disease in past 14 days?: No Do you have a fever (greater than 100.4 F or 38 C)?: No Have you tested positive for COVID-19?: No Exposed to someone with COVID-19 in past 14 days?: No Do you have a sore throat?: No Do you have a cough?: No Do you have any weakness?: No Do you have any diarrhea?: No Are you experiencing any unusual bleeding?: No Do you have any muscle aches/pain?: No Do you have any abdominal pain?: No Are you experiencing loss of taste or smell?: No [facility] Anesthesia Checklist Patient Identification Patient Identification: Verbal (Name & ) Structural Data Admitted From: Home Planned Operative Procedure/s: egd Consent for Planned Operative Procedure(s) Verified: Yes NPO Status Verified Time NPO: 00:00 Airway Assessment Mallampati Score:: Class II C-Spine Mobility Assessed: Yes TMJ Mobility Assessed: Yes Dentition: Poor Dentition Neurological Assessment Level of Consciousness: Awake, Alert and Appropriate Anesthesia Plan Anesthesia Risk discussed: Yes Anesthesia Plan: Verified ASA Class: II Anesthesia Type: MAC
[2025-09-23 14:28] VITALS: BP 119/74; PULSE 90; RESP 16; TEMP 36.1; O2SAT 93
[2025-09-23 14:43] VITALS: BP 110/76; PULSE 97; RESP 18; TEMP 36.1; O2SAT 96
[2025-09-23 14:58] VITALS: BP 130/70; PULSE 72; RESP 18; TEMP 36.1; O2SAT 96
[2025-09-29 14:12] LABS: Interpretation Notes (.); Lactase 22.19 (>/= 14.0); Maltase 302.39 (>/= 110.0); Palatinase 11.79 (>/= 8.5); Reference Notes (.); Sucrase 63.8 (>/= 25.0)
== END 2025-09-23 15:12 | disposition home or self-care (01) ==
PROVIDERS: PCP Nurse Practitioner Family; Visit Provider Internal Medicine Gastroenterology
PROC: 0DJ08ZZ Inspection of Upper Intestinal Tract, Via Natural or Artificial Opening Endoscopic (ICD-10-PCS; CPT 43239; principal; 2025-09-23 14:00)
DX: K21.9 Gastro-esophageal reflux disease without esophagitis (principal); K29.80 Duodenitis without bleeding; K44.9 Diaphragmatic hernia without obstruction or gangrene; K31.89 Other diseases of stomach and duodenum; J45.909 Unspecified asthma, uncomplicated; F32.A Depression, unspecified; F41.9 Anxiety disorder, unspecified; G43.909 Migraine, unspecified, not intractable, without status migrainosus; Z90.49 Acquired absence of other specified parts of digestive tract; Z85.89 Personal history of malignant neoplasm of other organs and systems; Z79.899 Other long term (current) drug therapy
CPT/HCPCS: 43239; 43249; 82657; C1726; J2003; J2704; J7120

== ENCOUNTER 2025-10-04 14:42 | Outpatient (CLI) | payer BC, SELFPAY ==
--- OUTSIDE RECORDS SUMMARY | 2025-09-29 18:38 | XMS_ITS | Encounter Summary ---
Author Organization [facility] Address [address] [place] [address] Care Team Providers Care Toe Former Name Role Phone Adriana King APRN Primary Care Provider [phone] Reason for Visit * Reason Comments Shortness of Breath Encounter Details Date Type Department Care Team (Late st Contact Info) Description 09/29/2025 6:38 PM EST - 09/29/2025 7:15 PM [facility] Emergency [facility] [address] [place] [address] Alisia Harman MD [address] [facility] [place] [address] Pneumonia of right lower lobe due to infectious organism (Primary Dx); Referred by health daycare assistant Discharge Disposition: Home or Self Care Social History Tobacco Use Types Packs/Day Years Used Date Smoking Tobacco: Never Assessed Abuse Screen Answer Date Recorded Feels Unsafe at Home or Work/School no 09/29/2025 Feels Threatened by Someone no 09/13 Does Anyone Try to Keep You From Having Contact with Others or Doing Things Outside Your Home? no 09/29/2025 Physical Signs of Abuse Present no 09/29/2025 Housing Stability Answer Date Recorded Current Living [...] on file Sexual Orientation Not on file documented as of this encounter Last Filed Vital Signs Vital Sign Reading Time Taken Comments Blood Pressure 129/88 09/29/2025 2:16 PM EST Pulse 85 09/29/2025 2:14 PM EST Temperature 36.7 C (98.1 F) 09/29/2025 2:14 PM EST Respiratory Rate 18 09/29/2025 7:05 PM EST Oxygen Saturation 96% 09/29/2025 2:14 PM EST Inhaled Oxygen Concentration - - Weight 67.6 kg (149 lb) 09/29/2025 2:14 PM EST Height 157.5 cm (5' 2 ) 09/29/2025 2:14 PM EST Body Mass Index 27.25 09/29/2025 2:14 PM EST documented in this encounter Functional Status * Calculated C-SSRS Risk Score (Lifetime/Recent) Answer Date of Assessment Author No Risk Indicated 09/29/2025 2:15 PM EST Emma Mandel, MATTHEW * Burden Suicide Severity Rating Scale (Screener/Recent Self-Report) Question Answer Date of Assessment Author 1. Wish to be (Past 1 Month) No 025 2:15 PM EST Emma Mandel, MATTHEW 2. Non-Specific Active Suici paulie Thoughts (Past 1 Month) No 09/29/2025 2:15 PM EST Emma Mandel , MATTHEW 6. Suicidal Behavior (Lifetime) No 2:15 PM EST Emma Mandel, MATTHEW documented as of this encounter Discharge Instructions * Attachments The following attachments cannot be sent through Care Everywhere. * Community-Acquired Pneumonia Adult (British) documented in this encounter ED Notes * Alex Gentile APRN - 09/29/2025 3:01 PM EST Images from the original note were not included. [facility] Pt Name: Beth Smith Birthdate: 1965 Date of evaluation: 09/29/2025 Provider: Alex Gentile APRN CHIEF COMPLAINT Chief Complaint Patient presents with Shortness of Breath HISTORY OF PRESENT ILLNESS (Location/Symptom, Timing/Onset, Context/Setting, Quality, Duration, Modifying Factors, Severity.) Beth Smith is a 60 y.o. female who presents to the Emergency Department : Pleasant patient who presents to the ER for right sided chest discomfort difficulty breathing. She tells me she does have a history of asthma. Seen at [facility] recently diagnosed with pneumonia and also thoughtshe may have a right sided lung mass and nodule. She was treated with antibiotics amoxicillin and azithromycin. Seen recently by her regular doctor and told that she still has pneumonia and is now ondoxycycline. Nursing notes were reviewed. PAST MEDICAL HISTORY No past medical history on file. SURGICAL HISTORY No past surgical history on file. CURRENT MEDICATIONS Current Facility-Administered Medications: sodium chloride 0.9 % flush 10 mL, 10 mL, Intravenous, PRN, Alisia Harman MD No current outpatient medications on file. ALLERGIES Patient has no known allergies. FAMILY HISTORY No family history on file. SOCIAL HISTORY Social History Socioeconomic History Marital status: Single REVIEW OF SYSTEMS Review of Systems PHYSICAL EXAM (up to 7 for level 4, 8 or more for level 5) Vitals: 09/29/25 1414 09/29/25 1416 BP: 129/88 Pulse: 85 Resp: 18 Temp: 98.1 ??F (36.7 ??C) TempSrc: Oral SpO2: 96% Weight: 67.6 kg (149 lb) Height: 157.5 cm (62 ) Physical Exam Constitutional: Appearance: She is well-developed. HENT: Head: Normocephalic and atraumatic. Right Ear: External ear normal. Left Ear: External ear normal. Nose: Nose normal. Eyes: Conjunctiva/sclera: Conjunctivae normal. Pupils: Pupils are equal, round, and reactive to light. Cardiovascular: Rate and Rhythm: Normal rate and regular rhythm. Heart sounds: Normal heart sounds. Pulmonary: Effort: Pulmonary effort is normal. Breath sounds: Wheezing present. Abdominal: General: Bowel sounds are normal. Palpations: Abdomen is soft. Musculoskeletal: General: Normal range of motion. Cervical back: Normal range of motion and neck supple. Skin: General: Skin is warm and dry. Neurological: Mental Status: She is alert and oriented to person, place, and time. Psychiatric: Behavior: Behavior normal. Thought Content: Thought content normal. Judgment: Judgment normal. DIAGNOSTIC RESULTS EKG: All EKGs are interpreted by the Emergency Department Physician who either signs or Co-signs this chart in the absence of a senior gis analyst. ECG 12 Lead Dyspnea Preliminary Result Test Reason : Dyspnea Blood Pressure : */* mmHG Vent. Rate : 79 BPM Atrial Rate : 79 BPM P-R Int : 140 ms QRS Dur : 72 ms QT Int : 378 ms P-R-T Axes : 43 2 43 degrees QTcB Int : 433 ms Normal sinus rhythm Possible Inferior infarct , age undetermined Cannot rule out Anterior infarct , age undetermined Abnormal ECG When compared with ECG of 29-Sep-2025 14:19, (Unconfirmed) Borderline criteria for Inferior infarct are now present Referred By: YAAKOV PERALES Confirmed By: ECG 12 Lead Dyspnea Preliminary Result Test Reason : Dyspnea Blood Pressure : */* mmHG Vent. Rate : 80 BPM Atrial Rate : 80 BPM P-R Int : 128 ms QRS Dur : 78 ms QT Int : 382 ms P-R-T Axes : 66 44 62 degrees QTcB Int : 440 ms Normal sinus rhythm Low voltage QRS Borderline ECG No previous ECGs available Referred By: YAAKOV PERALES Confirmed By: RADIOLOGY: [x] Radiologist's Report Reviewed: CT Angiogram Chest Pulmonary Embolism Final Result Impression: 1.No evidence of pulmonary embolus. 2.Minimal peripheral airspace disease within the lateral right lower lobe. Correlate for signs of pneumonia. No well-defined nodule nor mass. Electronically Signed: Justice Sutherland MD 09/29/2025 5:26 PM EST Workstation ID: [id number] XR Chest 1 View Final Result Impression: No acute cardiopulmonary findings. Electronically Signed: Jaden Velasquez MD 09/29/2025 2:35 PM EST Workstation ID: [id number] I ordered and independently reviewed the above noted radiographic studies. I viewed images per my independent interpretation. See radiologist's dictation for official interpretation. LABS: I have reviewed and interpreted all of the currently available lab results from this visit (if applicable): Results for orders placed or performed during the hospital encounter of 09/29/25 ECG 12 Lead Dyspnea Collection Time: 09/29/25 2:19 PM Result Value Ref Range QT Interval 382 ms QTC Interval 440 ms Comprehensive Metabolic Panel Collection Time: 09/29/25 2:39 PM Specimen: Blood Result Value Ref Range Glucose 85 65 - 99 mg/dL BUN 15.9 8.0 - 23.0 mg/dL Creatinine 0.77 0.57 - 1.00 mg/dL Sodium 139 136 - 145 mmol/L Potassium 4.1 3.5 - 5.2 mmol/L Chloride 102 98 - 107 mmol/L CO2 26.7 22.0 - 29.0 mmol/L Calcium 9.7 8.6 - 10.5 mg/dL Total Protein 7.1 6.0 - 8.5 g/dL Albumin 4.4 3.5 - 5.2 g/dL ALT (SGPT) 30 1 - 33 U/L AST (SGOT) 23 1 - 32 U/L Alkaline Phosphatase 86 39 - 117 U/L Total Bilirubin 0.4 0.0 - 1.2 mg/dL Globulin 2.7 gm/dL A/G Ratio 1.6 g/dL BUN/Creatinine Ratio 20.6 7.0 - 25.0 Anion Gap 10.3 5.0 - 15.0 mmol/L eGFR 88.4 >60.0 mL/min/1.73 BNP Collection Time: 09/29/25 2:39 PM Specimen: Blood Result Value Ref Range proBNP <36.0 0.0 - 900.0 pg/mL High Sensitivity Troponin T Collection Time: 09/29/25 2:39 PM Specimen: Blood Result Value Ref Range HS Troponin T <6 <14 ng/L CBC Auto Differential Collection Time: 09/29/25 2:39 PM Specimen: Blood Result Value Ref Range WBC 5.76 3.40 - 10.80 10*3/mm3 RBC 5.11 3.77 - 5.28 10*6/mm3 Hemoglobin 15.2 12.0 - 15.9 g/dL Hematocrit 45.0 34.0 - 46.6 % MCV 88.1 79.0 - 97.0 fL MCH 29.7 26.6 - 33.0 pg MCHC 33.8 31.5 - 35.7 g/dL RDW 12.4 12.3 - 15.4 % RDW-SD 40.1 37.0 - 54.0 fl MPV 10.6 6.0 - 12.0 fL Platelets 283 140 - 450 10*3/mm3 Neutrophil % 51.7 42.7 - 76.0 % Lymphocyte % 35.4 19.6 - 45.3 % Monocyte % 8.2 5.0 - 12.0 % Eosinophil % 3.5 0.3 - 6.2 % Basophil % 1.0 0.0 - 1.5 % Immature Grans % 0.2 0.0 - 0.5 % Neutrophils, Absolute 2.98 1.70 - 7.00 10*3/mm3 Lymphocytes, Absolute 2.04 0.70 - 3.10 10*3/mm3 Monocytes, Absolute 0.47 0.10 - 0.90 10*3/mm3 Eosinophils, Absolute 0.20 0.00 - 0.40 10*3/mm3 Basophils, Absolute 0.06 0.00 - 0.20 10*3/mm3 Immature Grans, Absolute 0.01 0.00 - 0.05 10*3/mm3 nRBC 0.0 0.0 - 0.2 /100 WBC Green Top (Gel) Collection Time: 09/29/25 2:39 PM Result Value Ref Range Extra Tube Hold for add-ons. Lavender Top Collection Time: 09/29/25 2:39 PM Result Value Ref Range Extra Tube hold for add-on Gold Top - SST Collection Time: 09/29/25 2:39 PM Result Value Ref Range Extra Tube Hold for add-ons. Talamantes Top Collection Time: 09/29/25 2:39 PM Result Value Ref Range Extra Tube Hold for add-ons. Light Blue Top Collection Time: 09/29/25 2:39 PM Result Value Ref Range Extra Tube Hold for add-ons. ECG 12 Lead Dyspnea Collection Time: 09/29/25 3:39 PM Result Value Ref Range QT Interval 378 ms QTC Interval 433 ms High Sensitivity Troponin T 1Hr Collection Time: 09/29/25 3:47 PM Specimen: Blood Result Value Ref Range HS Troponin T <6 <14 ng/L Troponin T Numeric Delta If labs were ordered, I independently reviewed the results and considered them in treating the patient. EMERGENCY DEPARTMENT COURSE and DIFFERENTIAL DIAGNOSIS/MDM: Vitals: OF 19:11 EST BP - 129/88 HR - 85 TEMP - 98.1 ??F (36.7 ??C) (Oral) O2 SATS - 96% Orders placed during this visit: Orders Placed This Encounter Procedures XR Chest [address] Angiogram Chest Pulmonary Embolism Sontag Draw Comprehensive Metabolic Panel BNP High Sensitivity Troponin T CBC Auto Differential High Sensitivity Troponin T 1Hr NPO Diet NPO Type: Strict NPO Undress & Gown Continuous Pulse Oximetry Vital Signs Oxygen Therapy- Nasal Cannula; Titrate 1-6 LPM Per SpO2; 90 - 95% ECG 12 Lead Dyspnea Insert Peripheral IV CBC & Differential Green Top (Gel) Lavender Top Gold Top - SST Talamantes Top Light Blue Top All labs have been independently reviewed by me. All radiology studies have been reviewed by me andthe radiologist dictating the report. All EKG's have been independently viewed and interpreted by me. Discussion below represents my analysis of pertinent findings related to patient's condition, differential diagnosis, treatment plan and final disposition. Differential diagnosis: The differential diagnosis associated with the patient's presentation includes: MEDICATIONS ADMINISTERED IN ED: Medications sodium chloride 0.9 % flush 10 mL (has no administration in time range) ipratropium-albuterol (DUO-NEB) nebulizer solution 3 mL (3 mL Nebulization Given 09/29/251904) iopamidol (ISOVUE-370) 76 % injection 100 mL (84 mL Intravenous Given 09/29/25 1638) ED COURSE ED Course as of 09/29/251910Sep 29, [address] of her chest. No evidence of mass. Concern for pneumonia. This could also be residual pneumonia. Reassuringly she is already been on Augmentin and Zithromax. And she was also on a new prescription for doxycycline labs overall reassuring. Plan to discharge the patient primary carefollow-up. Also give her a follow-up to pulmonology as well as she reports previously having a lungnodule. [JM] ED Course User Index [JM] Alex Gentile, HAWK I had a discussion with the patient/family regarding diagnosis, diagnostic results, treatment plan,and medications. The patient/family indicated understanding of these instructions. I spent adequatetime at the bedside preceding discharge necessary to personally discuss the aftercare instructions, giving patient education, providing explanations of the results of our evaluations/findings, and mydecision making to assure that the patient/family understand the plan of care. Time was allotted toanswer questions at that time and throughout the ED course. Emphasis was placed on timely follow-upafter discharge. I also discussed the potential for the development of an acute emergent condition requiring further evaluation, admission, or even surgical intervention. I discussed that we found nothing during the visit today indicating the need for further workup, admission, or the presence of an unstable medical condition. I encouraged the patient to return to the emergency department immediately for ANY concerns, worsening, new complaints, or if symptoms persist and unable to seek follow-up in a timely fashion. The patient/family expressed understanding and agreement with this plan. The patient will follow-up with their PCP in 1-2 days for reevaluation. PROCEDURES: Procedures CRITICAL CARE TIME Total Critical Care time was 0 minutes, excluding separately reportable procedures. There was a high probability of clinically significant/life threatening deterioration in the patient's condition which required my urgent intervention. FINAL IMPRESSION 1. Pneumonia of right lower lobe due to infectious organism 2. Referred by health daycare assistant DISPOSITION/PLAN ED Disposition ED Disposition Discharge Condition Stable Comment -- PATIENT REFERRED TO: Adriana King APRN [address] [address] Schedule an appointment as soon as possible for a visit [facility] [address] Schedule an appointment as soon as possible for a visit DISCHARGE MEDICATIONS: Medication List You have not been prescribed any medications. Comment: Please note this report has been produced using speech recognition software. Alex Gentile APRN 09/29/251910 Cosigned by Alisia Harman MD at 09/29/2025 9:49 PM EST Associated attestation - Alisia Harman MD - 09/29/2025 9:49 PM EST GENERAL SUPERVISION: I was available to render services if needed but did not directly participate in the care of the patient. and SUPERVISED: Based on the medical record the care appears appropriate. Alisia Harman MD 09/29/2025 21:49 EST documented in this encounter Plan of Treatment Not on file documented as of this encounter Procedures Procedure Name Priority Date/Time Associated Diagnosis Comments CT ANGIOGRAM CHEST PULMONARY EMBOLISM STAT 09/29/2025 4:48 PM EST HIGH SENSITIVITIY TROPONIN T 1HR STAT 09/29/2025 3:47 PM EST ECG 12-LEAD STAT 09/29/2025 3:39 PM EST TALAMANTES TOP STAT 09/29/2025 2:39 PM EST GOLD TOP - SST STAT 09/29/2025 2:39 PM EST DK GREEN TOP STAT 09/29/2025 2:39 PM EST CBC WITH AUTO DIFFERENTIAL STAT 09/29/2025 2:39 PM EST LAVENDER TOP STAT 09/29/2025 2:39 PM EST LIGHT BLUE TOP STAT 09/29/2025 2:39 PM EST RAINBOW DRAW STAT 09/29/2025 2:39 PM EST TROPONIN STAT 09/29/2025 2:39 PM EST CBC AND DIFFERENTIAL STAT 09/29/2025 2:39 PM EST B-TYPE NATRIURETIC PEPTIDE STAT 09/29/2025 2:39 PM EST COMPREHENSIVE METABOLIC PANEL STAT 09/29/2025 2:39 PM EST XR CHEST 1 VW STAT 09/29/2025 2:23 PM EST ECG 12-LEAD STAT 09/29/2025 2:19 PM EST documented in this encounter Results * CT Angiogram Chest Pulmonary Embolism (09/29/2025 4:48 PM EST) Anatomical Region Laterality Modality Chest N/A Computed Tomogra phy 09/29/2025 5:24 PM EST Impressions 09/29/2025 5:26 PM EST Impression: 1.No evidence of pulmonary embolus. 2.Minimal peripheral airspace disease within the lateral right lower lobe. Correlate for signs of pneumonia. No well-defined nodule nor mass. Electronically Signed: Justice Sutherland MD 09/29/2025 5:26 PM EST Workstation ID: [id number] Narrative 09/29/2025 5:[address] ANGIOGRAM CHEST PULMONARY EMBOLISM Date of Exam: 09/29/2025 4:35 PM EST Indication: Shortness of Breath. told she has a right lower lung mass. Comparison: None available. Technique: Axial CT images were obtained of the chest after the uneventful intravenous administration of iodinated contrast utilizing pulmonary embolism protocol. In addition, a 3-D volume rendered image was created for interpretation. Reconstructed coronal and sagittal images were also obtained. Automated exposure control and iterative construction methods were used. Findings: PULMONARY VASCULATURE: Pulmonary arteries are widely patent without evidence of embolus. Main pulmonary artery is normal in size. No evidence of right heart strain. MEDIASTINUM:Unremarkable. Aortic and heart size are normal. No aortic dissection identified. No mass nor pericardial effusion. CORONARY ARTERIES: Minimal calcified atherosclerotic disease. LUNGS: There is minimal peripheral irregular airspace disease within the lateral right lower lobe. Correlate for signs of pneumonia. No well-defined nodule nor mass. No significant interstitial changes. PLEURAL SPACE: No effusion, mass, nor pneumothorax. LYMPH NODES: There are no pathologically enlarged lymph nodes. UPPER ABDOMEN: Unremarkable OSSEOUS STRUCTURES: Appropriate for age with no acute process identified. Procedure Note Justice Sutherland MD - 09/29/2025 CT ANGIOGRAM CHEST PULMONARY EMBOLISM Date of Exam: 09/29/2025 4:35 PM EST Indication: Shortness of Breath. told she has a right lower lung mass. Comparison: None available. Technique: Axial CT images were obtained of the chest after the uneventfulintravenous administration of iodinated contrast utilizing pulmonaryembolism protocol. In addition, a 3-D volume rendered image was createdfor interpretation. Reconstructed coronal and sagittal images were also obtained. Automated exposure controland iterative construction methods were used. Findings: PULMONARY VASCULATURE: Pulmonary arteries are widely patent withoutevidence of embolus. Main pulmonary artery is normal in size. No evidenceof right heart strain. MEDIASTINUM:Unremarkable. Aortic and heart size are normal. No aorticdissection identified. No mass nor pericardial effusion. CORONARY ARTERIES: Minimal calcified atherosclerotic disease. LUNGS: There is minimal peripheral irregular airspace disease within thelateral right lower lobe. Correlate for signs of pneumonia. Chema-defined nodule nor mass. No significant interstitial changes. PLEURAL SPACE: No effusion, mass, nor pneumothorax. LYMPH NODES: There are no pathologically enlarged lymph nodes. UPPER ABDOMEN: Unremarkable OSSEOUS STRUCTURES: Appropriate for age with no acute processidentified. IMPRESSION: Impression: 1.No evidence of pulmonary embolus. 2.Minimal peripheral airspace disease within the lateral right lower lobe.Correlate for signs of pneumonia. No well-defined nodule nor mass. 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 Blood Venipuncture / Unknown 09/29/2025 3:47 PM EST 09/29/2025 3:55 PM EST [facility] - 09/29/2025 4:14 PM EST High Sensitive Troponin T Reference Range: <14.0 ng/L- Negative Female for AMI <22.0 ng/L- Negative Male for AMI >=14 - Abnormal Female indicating possible myocardial injury. >=22 - Abnormal Male indicating possible myocardial injury. Clinicians would have to utilize clinical acumen, EKG, Troponin, and serial changes to determine if it is an Acute Myocardial Infarction or myocardial injury due to an underlying chronic condition. Alisia Harman MD LAB BLOOD ORDERABLES Melodie l Result Performing Organization Address City/[facility]/ZIP Co de Phone Number [facility]
[address] [place] [address], * ECG 12 Lead Dyspnea (09/29/2025 3:39 PM EST) QT Interval 378 ms ECG QTC Interval 433 ms ECG 09/29/2025 3:39 PM EST 09/30/2025 3:27 PM EST Narrative ECG - 09/30/2025 3:27 PM EST Test Reason : Dyspnea Blood Pressure : */* mmHG Vent. Rate : 79 BPM Atrial Rate : 79 BPM P-R Int : 140 ms QRS Dur : 72 ms QT Int : 378 ms P-R-T Axes : 43 2 43 degrees QTcB Int : 433 ms Normal sinus rhythm Possible Inferior infarct , age undetermined Cannot rule out Anterior infarct , age undetermined Abnormal ECG When compared with ECG of 29-Sep-2025 14:19, (Unconfirmed) Borderline criteria for Inferior infarct are now present Confirmed by ALISIA HARMAN MD ([id number]) on 09/30/2025 3:27:20 PM Referred By: YAAKOV PERALES Confirmed By: ALISIA HARMAN MD Procedure Note Alisia Harman MD - 09/30/2025 Test Reason : Dyspnea Blood Pressure : */* mmHG Vent. Rate : 79 BPM Atrial Rate : 79 BPM P-R Int : 140 ms QRS Dur : 72 ms QT Int : 378 ms P-R-T Axes : 43 2 43 degrees QTcB Int : 433 ms Normal sinus rhythm Possible Inferior infarct , age undetermined Cannot rule out Anterior infarct , age undetermined Abnormal ECG When compared with ECG of 29-Sep-2025 14:19, (Unconfirmed) Borderline criteria for Inferior infarct are now present Confirmed by ALISIA HARMAN MD ([id number]) on 09/30/2025 3:27:20 PM Referred By: YAAKOV PERALES Confirmed By: ALISIA HARMAN MD Alisia Harman MD ECG ORDERABLES Final Res ult BH ECG * CBC Auto Differential (09/29/2025 2:39 PM EST) WBC 5.76 3.40 - 10.80 10*3/mm3 09/29/2025 2:48 PM EST [facility] RBC 5.11 3.77 - 5.28 10*6/mm3 09/29/2025 2:48 PM EST [facility] Hemoglobin 15.2 12.0 - 15.9 g/dL 09/29/2025 2:48 PM EST [facility] Hematocrit 45.0 34.0 - 46.6 % 09/29/2025 2:48 PM EST [facility] MCV 88.1 79.0 - 97.0 fL 09/29/2025 2:48 PM EST [facility] MCH 29.7 26.6 - 33.0 pg 09/29/2025 2:48 PM EST [facility] MCHC 33.8 31.5 - 35.7 g/dL 09/29/2025 2:48 PM EST [facility] RDW 12.4 12.3 - 15.4 % 09/29/2025 2:48 PM EST [facility] RDW-SD 40.1 37.0 - 54.0 fl 09/29/2025 2:48 PM EST [facility] MPV 10.6 6.0 - 12.0 fL 09/29/2025 2:48 PM EST [facility] Platelets 283 140 - 450 10*3/mm3 09/29/2025 2:48 PM EST [facility] Neutrophil % 51.7 42.7 - 76.0 % 09/29/2025 2:48 PM EST [facility] Lymphocyte % 35.4 19.6 - 45.3 % 09/29/2025 2:48 PM EST [facility] Monocyte % 8.2 5.0 - 12.0 % 09/29/2025 2:48 PM EST [facility] Eosinophil % 3.5 0.3 - 6.2 % 09/29/2025 2:48 PM EST [facility] Basophil % 1.0 0.0 - 1.5 % 09/29/2025 2:48 PM [facility] Immature Grans % 0.2 0.0 - 0.5 % 09/29/2025 2:48 PM [facility] Neutrophils, Absolute 2.98 1.70 - 7.00 10*3/mm3 09/29/2025 2:48 PM EST [facility] Lymphocytes, Absolute 2.04 0.70 - 3.10 10*3/mm3 09/29/2025 2:48 PM [facility] Monocytes, Absolute 0.47 0.10 - 0.90 10*3/mm3 09/29/2025 2:48 PM [facility] Eosinophils, Absolute 0.20 0.00 - 0.40 10*3/mm3 09/29/2025 2:48 PM [facility] Basophils, Absolute 0.06 0.00 - 0.20 10*3/mm3 09/29/2025 2:48 PM [facility] Immature Grans, Absolute 0.01 0.00 - 0.05 10*3/mm3 09/29/2025 2:48 PM [facility] nRBC 0.0 0.0 - 0.2 /100 WBC 09/29/2025 2:48 PM [facility] Blood Venipuncture / Unknown 09/29/2025 2:39 PM EST 09/29/2025 2:44 PM EST us Alisia Harman MD LAB BLOOD ORDERABLES Melodie l Result [facility]
[address] [place] [address], * Light Blue Top (09/29/2025 2:39 PM EST) Extra Tube Hold for add-ons. 09/29/2025 2:45 PM EST [facility] Comment:Auto resulted Blood Venipuncture / Unknown 09/29/2025 2:39 PM EST 09/29/2025 2:44 PM EST Alisia Harman MD LAB BLOOD ORDER ONLY Melodie l Result [facility]
[address] [place] [address], * [place] Top (09/29/2025 2:39 PM EST) Extra Tube Hold for add-ons. 09/29/2025 2:45 PM EST [facility] Comment:Auto resulted. Blood Venipuncture / Unknown 09/29/2025 2:39 PM EST 09/29/2025 2:44 PM EST Alisia Harman MD LAB BLOOD ORDER ONLY Melodie l Result Performing Organization Address [facility]/ZIP Co de Phone Number [facility]
[address] [place] [address], [place] [phone] * Gold Top - SST (09/29/2025 2:39 PM EST) Extra Tube Hold for add-ons. 09/29/2025 2:45 PM EST [facility] Comment:Auto resulted. Blood Venipuncture / Unknown 09/29/2025 2:39 PM EST 09/29/2025 2:44 PM EST Alisia Harman MD LAB BLOOD ORDER ONLY Melodie l Result Performing Organization Address City/[facility]/ZIP Co de Phone Number [facility]
[address] [place] [address], [place] [phone] * Lavender Top (09/29/2025 2:39 PM EST) Extra Tube hold for add-on 09/29/2025 2:45 PM EST [facility] Comment:Auto resulted Blood Venipuncture / Unknown 09/29/2025 2:39 PM EST 09/29/2025 2:44 PM EST us Alisia Harman MD LAB BLOOD ORDER ONLY Melodie l Result Performing Organization Address City/[facility]/ZIP Co de Phone Number [facility]
[address] [place] [address], * Green Top (Gel) (09/29/2025 2:39 PM EST) Extra Tube Hold for add-ons. 09/29/2025 2:45 PM EST [facility] Comment:Auto resulted. Blood Venipuncture / Unknown 09/29/2025 2:39 PM EST 09/29/2025 2:44 PM EST Alisia Harman MD LAB BLOOD ORDER ONLY Melodie l Result Performing Organization Address City/[facility]/ZIP Co de Phone Number [facility]
[address] [place] [address], * High Sensitivity Troponin T (09/29/2025 2:39 PM EST) HS Troponin T <6 <14 ng/L 09/29/2025 3:08 PM EST [facility] Blood Venipuncture / Unknown 09/29/2025 2:39 PM EST 09/29/2025 2:44 PM EST Narrative [facility] - 09/29/2025 3:08 PM EST High Sensitive Troponin T Reference Range: <14.0 ng/L- Negative Female for AMI <22.0 ng/L- Negative Male for AMI >=14 - Abnormal Female indicating possible myocardial injury. >=22 - Abnormal Male indicating possible myocardial injury. Clinicians would have to utilize clinical acumen, EKG, Troponin, and serial changes to determine if it is an Acute Myocardial Infarction or myocardial injury due to an underlying chronic condition. Alisia Harman MD LAB BLOOD ORDERABLES Melodie l Result Performing Organization Address [facility] Co de Phone Number [facility]
[address] [place] [address], * BNP (09/29/2025 2:39 PM EST) proBNP <36.0 0.0 - 900.0 pg/mL 09/29/2025 3:08 PM EST [facility] Blood Venipuncture / Unknown 09/29/2025 2:39 PM EST 09/29/2025 2:44 PM EST [facility] - 09/29/2025 3:08 PM EST This assay is used as an aid in the diagnosis of individuals suspected of having heart failure. It can be used as an aid in the diagnosis of acute decompensated heart failure (ADHF) in patients presenting with signs and symptoms of ADHF to the emergency department (ED). In addition, NT-proBNP of <300 pg/mL indicates ADHF is not likely. Age Range Result Interpretation NT-proBNP Concentration (pg/mL: <50 Positive >450 Talamantes 300-450 Negative <300 50-75 Positive >900 Talamantes 300-900 Negative <300 >75 Positive >1800 Talamantes 300-1800 Negative <300 Alisia Harman MD LAB BLOOD ORDERABLES Melodie l Result Performing Organization Address [facility] Co de Phone Number [facility]
[address] [place] [address], * Comprehensive Metabolic Panel (09/29/2025 2:39 PM EST) Glucose 85 65 - 99 mg/dL 09/29/2025 3:08 PM EST [facility] BUN 15.9 8.0 - 23.0 mg/dL 09/29/2025 3:08 PM EST [facility] Creatinine 0.77 0.57 - 1.00 mg/dL 09/29/2025 3:08 PM [facility] Sodium 139 136 - 145 mmol/L 09/29/2025 3:08 PM [facility] Potassium 4.1 3.5 - 5.2 mmol/L 09/29/2025 3:08 PM [facility] Chloride 102 98 - 107 mmol/L 09/29/2025 3:08 PM [facility] CO2 26.7 22.0 - 29.0 mmol/L 09/29/2025 3:08 PM [facility] Calcium 9.7 8.6 - 10.5 mg/dL 09/29/2025 3:08 PM [facility] Total Protein 7.1 6.0 - 8.5 g/dL 09/29/2025 3:08 PM [facility] Albumin 4.4 3.5 - 5.2 g/dL 09/29/2025 3:08 PM [facility] ALT (SGPT) 30 1 - 33 U/L 09/29/2025 3:08 PM [facility] AST (SGOT) 23 1 - 32 U/L 09/29/2025 3:08 PM [facility] Alkaline Phosphatase 86 39 - 117 U/L 09/29/2025 3:08 PM [facility] Total Bilirubin 0.4 0.0 - 1.2 mg/dL 09/29/2025 3:08 PM [facility] Globulin 2.7 gm/dL 09/29/2025 3:08 PM [facility] Comment:Calculated Result A/G Ratio 1.6 g/dL 09/29/2025 3:08 PM [facility] BUN/Creatinine Ratio 20.6 7.0 - 25.0 09/29/2025 3:08 PM [facility] Anion Gap 10.3 5.0 - 15.0 mmol/L 09/29/2025 3:08 PM [facility] eGFR 88.4 >60.0 mL/min/1.7 3 09/29/2025 3:08 PM [facility] Blood Venipuncture / Unknown 09/29/2025 2:39 PM EST 09/29/2025 2:44 PM EST Narrative [facility] - 09/29/2025 3:08 PM EST GFR Categories in Chronic Kidney Disease (CKD) GFR Category GFR (mL/min/1.73) Interpretation G1 90 or greater Normal or high (1) G2 60-89 Mild decrease (1) G3a 45-59 Mild to moderate decrease G3b 30-44 Moderate to severe decrease G4 15-29 Severe decrease G5 14 or less Kidney failure (1)In the absence of evidence of kidney disease, neither GFR category G1 or G2 fulfill the criteria for CKD. eGFR calculation 2020 CKD-EPI creatinine equation, which does not include race as a factor us Alisia Harman MD LAB BLOOD ORDERABLES Melodie l Result [facility]
[address] [place] [address], * XR Chest 1 View (09/29/2025 2:23 PM EST) Anatomical Region Laterality Modality Body N/A Radiographic Susan ging 09/29/2025 2:33 PM EST Impressions 09/29/2025 2:35 PM EST Impression: No acute cardiopulmonary findings. Electronically Signed: Jaden Velasquez MD 09/29/2025 2:35 PM EST Workstation ID: [id number] Narrative 09/29/2025 2:35 PM EST XR CHEST 1 VW Date of Exam: 09/29/2025 2:19 PM EST Indication: SOA triage protocol. Comparison: None available. Findings: Normal cardiomediastinal silhouette. The lungs are clear. No pleural effusion or pneumothorax. No acute osseous findings. Procedure Note Jaden Velasquez MD - 09/29/2025 XR CHEST 1 VW Date of Exam: 09/29/2025 2:19 PM EST Indication: SOA triage protocol. Comparison: None available. Findings: Normal cardiomediastinal silhouette. The lungs are clear. No pleuraleffusion or pneumothorax. No acute osseous findings. IMPRESSION: Impression: No acute cardiopulmonary findings. Electronically Signed: Jaden Velasquez MD 09/29/2025 2:35 PM EST Workstation ID: [id number] us Alisia Harman MD IMG DIAGNOSTIC IMAGING OR DERABLES Final Result * ECG 12 Lead Dyspnea (09/29/2025 2:19 PM EST) QT Interval 382 ms ECG QTC Interval 440 ms ECG 09/29/2025 2:19 PM EST 09/30/2025 3:27 PM EST Narrative ECG - 09/30/2025 3:27 PM EST Test Reason : Dyspnea Blood Pressure : */* mmHG Vent. Rate : 80 BPM Atrial Rate : 80 BPM P-R Int : 128 ms QRS Dur : 78 ms QT Int : 382 ms P-R-T Axes : 66 44 62 degrees QTcB Int : 440 ms Normal sinus rhythm Low voltage QRS Borderline ECG No previous ECGs available Confirmed by ALISIA HARMAN MD ([id number]) on 09/30/2025 3:27:35 PM Referred By: YAAKOV PERALES Confirmed By: ALISIA HARMAN MD Procedure Note Alisia Harman MD - 09/30/2025 Test Reason : Dyspnea Blood Pressure : */* mmHG Vent. Rate : 80 BPM Atrial Rate : 80 BPM P-R Int : 128 ms QRS Dur : 78 ms QT Int : 382 ms P-R-T Axes : 66 44 62 degrees QTcB Int : 440 ms Normal sinus rhythm Low voltage QRS Borderline ECG No previous ECGs available Confirmed by ALISIA HARMAN MD ([id number]) on 09/30/2025 3:27:35 PM Referred By: YAAKOV PERALES Confirmed By: ALISIA HARMAN MD us Alisia Harman MD ECG ORDERABLES Final Res ult ECG documented in this encounter Visit Diagnoses Diagnosis Pneumonia of right lower lobe due to infectious organism- Primary Referred by health daycare assistant documented in this encounter Administered Medications Inactive Administered Medications - up to 3 most recent administrations Medication Order MAR Action Action Date Dose Rate Site iopamidol (ISOVUE-370) 76 % injection 100 mL 100 mL, Intravenous, Once in Imaging, On Sat09/29/25 at 1704, For 1 dose Given 09/29/2025 4:38 PM EST 84 mL ipratropium-albuterol (DUO-NEB) nebulizer solution 3 mL 3 mL, Nebulization, Once, On Sat09/29/25 at 1459, For 1 dose, Include Respiratory Treatment Education Given 09/29/2025 7:05 PM EST 3 mL sodium chloride 0.9 % flush 10 mL 10 mL, Intravenous, As Needed, Line Care, Starting on Sat09/29/25 at 1416 documented in this encounter Active and Recently Administered Medications Times are shown in EST. Scheduled Medication Order 09/27/2025 09/28/2025 09/29/2025 iopamidol (ISOVUE-370) 76 % injection 100 mL (COMPLETED) 100 mL, Intravenous, Once in Imaging, On Sat09/29/25 at 1704, For 1 dose 1638 (Given - Provid er: Wisam Quevedo ARRT) ipratropium-albuterol (DUO-NEB) nebulizer solution 3 mL (COMPLETED) 3 mL, Nebulization, Once, On Sat09/29/25 at 1459, For 1 dose, Include Respiratory Treatment Education 1905 (Given - Provid er: Kary Lechuga, SEATER ASSEMBLER) PRN Medication Order 09/27/2025 09/28/2025 09/29/2025 sodium chloride 0.9 % flush 10 mL 10 mL, Intravenous, As Needed, Line Care, Starting on Sat09/29/25 at 1416 documented in this encounter Care Teams Toe Former Relationship Specialty Start Date End Date Adriana King APRN PCP - General Internal Medicine 11/12/22 documented as of this encounter
--- OUTSIDE RECORDS SUMMARY | 2025-10-04 14:47 | XMS_ITS | Clinical Summary ---
Author Organization [facility] Address 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 Name Role Phone Unavailable Primary Care Provider Unavailabl e Social History Tobacco Use Types Packs/Day Years Used Date Smoking Tobacco: Never Assessed Comments Unknown Sex and Gender Information Value Date Recorded Sex Assigned at Not on file Legal Sex Female 5:21 PM EDT Gender Identity Not on file Sexual Orientation Not on file Plan of Treatment Health Maintenance Due Date Last Done Comments Annual Wellness Exam 1968 Hepatitis C Screening 1983 Cervical Cancer Screening 1986 Pap Smear 1986 HPV/Pap Cotest 1995 Cologuard 2010 Colon Cancer Screening 2010 Colonoscopy 2010 FIT 2010 Sigmoidoscopy 2010 Virtual Colonography 2010 Zoster (2 of 2) 09/24/2020 07/30/2020 Pneumococcal Vaccine 50+ (2 of 2 - PCV) 07/30/2021 07/30/2020 COVID-19 Vaccine ( season) 2025 Influenza Vaccine (#1) 2025 , 07/30/2020, 07/14/2019, Additional history exists Breast Cancer Screening 07/22/2025 07/22/2023, 08/05 DTaP/TDaP/Td (2 - Td or Tdap) 03/22/2033 03/22/2023 Hepatitis B Vaccine Aged Out No longe r eligible based on patient's age to complete this topic Meningococcal B Vaccine Aged Out No l onger eligible based on patient's age to complete this topic Procedures Procedure Name Priority Date/Time Associated Diagnosis Comments MM MAMMO DIGITAL BREANNE SCREEN BILAT Routine 07/22/2023 12:36 PM EDT Encounter for screening mammogram for malignant neoplasm of breast from Last 3 Months or Most Recently Relevant to Health Maintenance Results * MM MAMMO DIGITAL BREANNE SCREEN BILAT (07/22/2023 12:36 PM EDT) Anatomical Region Laterality Modality Breast Bilateral Mammography 07/23/2023 8:21 AM EDT Impressions 07/23/2023 8:21 AM EDT Negative ([id number]) ~ RECOMMENDATION: Routine screening mammogram in 1 year. ~ DISCLAIMER * Any patient with a palpable abnormality, unexplained by breast imaging, should be managed on clinical basis by the attending physician. * Breast imaging has a false negative rate of 15%. * The patient was notified by mail of the results of this examination. *The patient's information was entered into a reminder system with a target due date for the next mammogram, in accordance with the [employer] and the Society of Breast Imaging recommendations. Narrative 07/23/2023 8:21 AM EDT Procedure:MM MAMMO DIGITAL BREANNE SCREEN BILAT ~ Reason for exam: screening, asymptomatic. Z12.31-Encounter for screening mammogram for malignant neoplasm of [id number] ~ MM MAMMO DIGITAL BREANNE SCREEN BILAT Bilateral CC and MLO view(s) were taken. There are scattered fibroglandular densities. Prior study comparison: Compared with prior studies the most recent being 08/05/19. No mammographic evidence of malignancy. No suspicious calcifications. ~ Procedure Note Dk Mathias DO - 07/23/2023 Procedure:MM MAMMO DIGITAL BREANNE SCREEN BILAT ~ Reason for exam: screening, asymptomatic. Z12.31-Encounter for screening mammogram for malignant neoplasm of [id number] ~ MM MAMMO DIGITAL BREANNE SCREEN BILAT Bilateral CC and MLO view(s) were taken. There are scattered fibroglandular densities. Prior study comparison: Compared with prior studies the most recentbeing 08/05/19. No mammographic evidence of malignancy. No suspicious calcifications. ~ IMPRESSION: Negative ([id number]) ~ RECOMMENDATION: Routine screening mammogram in 1 year. ~ DISCLAIMER * Any patient with a palpable abnormality, unexplained by breast imaging, should be managed on clinical basis by the attending physician. * Breast imaging has a false negative rate of 15%. * The patient was notified by mail of the results of this examination. *The patient's information was entered into a reminder system with atarget due date for the next mammogram, in accordance with the [employer] and the Society of Breast Imaging recommendations. Marci Linda PA-C IMJw MAMMOGRAPHY ORDERABLES Fi nal Result from Last 3 Months or Most Recently Relevant to Health Maintenance
--- OUTSIDE RECORDS SUMMARY | 2025-10-04 14:47 | XMS_ITS | Clinical Summary ---
Author Organization [facility] Address [address] [place] [address] Phone [email or web address] Care Team Providers Care Brake Repairer Air Name Role Phone Unavailable Primary Care Provider Unavailabl e Allergies No known active allergies Medications SYMBICORT 160-4.5 MCG/ACT inhaler 09/17/2018 Active montelukast (SINGULAIR) 10 MG tablet Take 10 mg by mouth every night. Active cetirizine (ZyrTEC) 10 MG chewable tablet Chew 10 mg 1 (one) time each day. Active UNKNOWN TO PATIENTIndicati ons:depression Activ e lamoTRIgine (LaMICtal) 100 MG tablet Take 100 mg by mouth 1 (one) time each day. 3 09/18/2019 Active ARIPiprazole (ABILIFY) 5 MG tablet START 12 5 19. TAKE 1 2 TABLET BY MOUTH ONCE DAILY FOR ONE WEEK. THEN TAKE 1 TABLET BY MOUTH ONE DAILY FOR ONE WEEK. THEN TAKE 2 TABLETS BY 0 09/03/2019 Active lisinopril (ZESTRIL) 10 MG tablet Take 10 mg by mouth 1 (one) time each day. 5 09/07/2019 Active traZODone (DESYREL) 50 MG tablet Take 50 mg by mouth 1 (one) time each day. 0 08/26/2019 Active albuterol HFA 108 (90 Base) MCG/ACT inhaler Inhale 2 puffs every 4 (four) hours if needed. Active omeprazole (PriLOSEC) [address] capsule TAKE 1 CAPSULE BY MOUTH ONCE DAILY FOR 90 DAYS 03/13/2023 Active colestipol (COLESTID) 1 g tablet Take 1 g by mouth in the morning and 1 g before bedtime. 03/05/2023 Active Active Problems Problem Noted Date Diagnosed Date Wrist injury, left, initial encounter 11/07/2023 Return to work evaluation 04/05/2023 Pain in joint, hand 07/27/2011 Overview (03/12/2018): Rash and other nonspecific skin eruption 011 Overview (03/12/2018): Pain in joint, shoulder region 01/04/2011 Overview (03/12/2018): Examination for medicolegal reason 10/04/2010 Overview (03/12/2018): Other examination of ears and hearing 07/12/2008 Overview (03/12/2018): Superficial injury of cornea 07/05/2008 Overview (03/12/2018): Health examination of defined subpopulation 08/15 Overview (03/12/2018): Social History Tobacco Use Types Packs/Day Years Used Date Smoking Tobacco: Never Smokeless Tobacco: Never Tobacco Cessation:Counseling Given: Not Answered Intimate Partner Violence Answer Date R ecorded Insults You Not on file 01/25/2021 Threatens You Not on file 01/25/2021 Screams at You Not on file 01/25/2021 Physically Hurt Not on file 01/25/2021 Intimate Partner Violence Score Not on file 01/25/2021 Depression Answer Date Recorded PHQ Total Score 0 04/05/2023 Stress Answer Date Recorded Stress in your Life Not on file 08/17/2024 Dealing with Stress 3 08/17/2024 Comments Unknown Sex and Gender Information Value Date Recorded Sex Assigned at Not on file Legal Sex Female 10:23 AM CDT Gender Identity Not on file Sexual Orientation Not on file Last Filed Vital Signs Vital Sign Reading Time Taken Comments Blood Pressure 154/101 11/07/2023 2:04 PM EST Pulse 82 11/07/2023 2:04 PM EST Temperature 37.1 C (98.8 F) 06/21/2021 11:50 AM EDT Respiratory Rate 18 11/07/2023 2:04 PM EST Oxygen Saturation 95% 11/07/2023 2:04 PM EST Inhaled Oxygen Concentration - - Weight 71.5 kg (157 lb 9 oz) 12/19/2016 4:31 PM 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 Height 157.5 cm (5' 2 ) 07/16/2013 8:58 PM CDT Body Mass Index 28.82 07/16/2013 8:58 PM CDT Plan of Treatment Health Maintenance Due Date Last Done Comments CT Colonography 1965 Cervical Cancer Screening Combo 1965 Colonoscopy 1965 Colorectal Cancer Screening Combo 1965 DNA Cologuard 1965 Dental Cleaning/Exam 1965 FIT or FOBT Test 1965 HIV Screening 1965 HPV only / HPV + Pap 1965 Hepatitis C Screening 1965 Pap only testing 1965 Sigmoidoscopy 1965 Asthma Spirometry 1970 Annual Preventive Exam 1983 Hep B Infection Screening - Triple Screen 1983 Tetanus Diphtheria and Pertussis Immunization (1 - Tdap) 1984 Zoster Immunization (2 of 2) 09/24/2020 07/30/2020 Pneumococcal: 50+ Years (2 of 2 - PCV) 07/30/2021 07/30/2020 Covid-19 Immunization (1 - 2024- season) 2025 Influenza Immunization (#1) 2025 10/0 02/2021, 07/30/2020, 07/14/2019, Additional history exists Breast Cancer Screening 07/22/2025 07/22/2023, 08/05 Hepatitis A Immunization Aged Out 11/04/2018 No longer eligible based on patient's age to complete this topic Pneumococcal Immunization Discontinued 07/30/2020 HIB Immunization Aged Out No longer e ligible based on patient's age to complete this topic HPV Immunization Aged Out No longer e ligible based on patient's age to complete this topic Hepatitis B Immunization Aged Out No longer eligible based on patient's age to complete this topic Polio Immunization Aged Out No longer eligible based on patient's age to complete this topic Insurance [facility] YFN [place] [id number] [place] [address]
--- OUTSIDE RECORDS SUMMARY | 2025-10-04 14:47 | XMS_ITS | Clinical Summary ---
[facility] Organization [facility] Address [address] [place] [address] Care Team Providers Care Geomorphology Teacher Name Role Phone KingJenniferlance ARECHIGA Primary Care Provider Allergies No known active allergies Encounters Date Type Department Care Team Description 09/29/2025 6:38 PM EST - 09/29/2025 7:15 PM EST Emergency [facility] [address] [place] [address] Alisia Harman MD Pneumonia of right lower lobe due to infectious organism (Primary Dx); Referred by health critical care physician Discharge Disposition: Home or Self Care 09/29/2025 Travel from Last 3 Months Social History Tobacco Use Types Packs/Day Years [...] Mass Index 27.25 09/29/2025 2:14 PM EST Plan of Treatment Health Maintenance Due Date Last Done Comments ANNUAL PHYSICAL 1965 Annual Gynecologic Pelvic an d Breast Exam 1965 HEPATITIS C SCREENING 1965 COLOGUARD 2010 COLON CANCER SCREENING 5 YEA R SIGMOIDOSCOPY 2010 COLONOSCOPY 2010 COL[address]AL CANCER SCREENING 2010 CT COLONOGRAPHY 2010 FECAL OCCULT BLOOD TEST 2010 FIT Testing (1 year) 2010 ZOSTER VACCINE (2 of 2) 09/24/2020 07/30/2020 Pneumococcal Vaccine 50+ (2 of 2 - PCV) 07/30/2021 07/30/2020 MAMMOGRAM 07/22/2025 07/22/2023, 10/0 06/2023, 08/05/2019, Additional history exists TDAP/TD VACCINES (2 - Td or Tdap) 03/22/2033 023 INFLUENZA VACCINE Completed 05/31/2025, , 07/18/2021, Additional history exists Procedures Procedure Name Priority Date/Time Associated Diagnosis Comments CT ANGIOGRAM CHEST PULMONARY EMBOLISM STAT 09/29/2025 4:48 PM EST HIGH SENSITIVITIY TROPONIN T 1HR STAT 09/29/2025 3:47 PM EST ECG 12-LEAD STAT 09/29/2025 3:39 PM EST LIGHT BLUE TOP STAT 09/29/2025 2:39 PM EST TALAMANTES TOP STAT 09/29/2025 2:39 PM EST GOLD TOP - SST STAT 09/29/2025 2:39 PM EST LAVENDER TOP STAT 09/29/2025 2:39 PM EST DK GREEN TOP STAT 09/29/2025 2:39 PM EST CBC AND DIFFERENTIAL STAT 09/29/2025 2:39 PM EST CBC WITH AUTO DIFFERENTIAL STAT 09/29/2025 2:39 PM EST TROPONIN STAT 09/29/2025 2:39 PM EST B-TYPE NATRIURETIC PEPTIDE STAT 09/29/2025 2:39 PM EST COMPREHENSIVE METABOLIC PANEL STAT 09/29/2025 2:39 PM EST RAINBOW DRAW STAT 09/29/2025 2:39 PM EST XR CHEST 1 VW STAT 09/29/2025 2:23 PM EST ECG 12-LEAD STAT 09/29/2025 2:19 PM EST from Last 3 Months Results * CT Angiogram Chest Pulmonary Embolism [...] MD 09/29/2025 5:26 PM EST Workstation ID: [id number] Bob 09/29/2025 5:[address] ANGIOGRAM CHEST [...] MD 09/29/2025 5:26 PM EST Workstation ID: [id number] Alex Gentile APRN IMG CT ORDERABLES Final Result * High Sensitivity Troponin T 1Hr (09/29/2025 3:47 PM EST) HS Troponin T <6 <14 ng/L 09/29/2025 4:14 PM EST [facility] Troponin T Numeric Delta 09/29/2025 4:14 PM EST [facility] Comment:Test required for ca lculation is unable to be determined; thus, the calculation is not available. Blood Venipuncture / Unknown 09/29/2025 3:47 PM EST 09/29/2025 3:55 PM EST Narrative [facility] - 09/29/2025 4:14 PM EST High [...] MD LAB BLOOD ORDERABLES Melodie l Result [facility]
[address] [place] [address], [place] [phone] * ECG 12 Lead Dyspnea (09/29/2025 3:39 PM EST) Only the most recent of2 resultswithin the time period is included. Pathologist [facility] QT Interval 378 ms ECG QTC Interval 433 ms ECG 09/29/2025 3:3 9 PM EST 09/30/2025 3:27 PM EST Narrative [...] Referred By: YAAKOV PERALES Confirmed By: ALISIA AHRMAN MD us Alisia Harman MD ECG ORDERABLES Final Res ult ECG * Talamantes Top (09/29/2025 2:39 PM EST) Extra Tube Hold for add-ons. 09/29/2025 2:45 PM EST [facility] Comment:Auto resulted. Blood Venipuncture / Unknown 09/29/2025 2:39 PM EST 09/29/2025 2:44 PM EST Alisia Harman MD LAB BLOOD ORDER ONLY Melodie l Result Performing Organization Address City/[facility]/ZIP Co de Phone Number [facility]
[address] [place] [address], * Gold Top - SST (09/29/2025 2:39 PM EST) Extra Tube Hold for add-ons. 09/29/2025 2:45 PM EST [facility] Comment:Auto resulted. Blood Venipuncture / Unknown 09/29/2025 2:39 PM EST 09/29/2025 2:44 PM EST Alisia Harman MD LAB BLOOD ORDER ONLY Melodie l Result Performing Organization Address [facility] de Phone Number [facility]
[address] [place] [address], * Green Top (Gel) (09/29/2025 2:39 PM EST) Extra Tube Hold for add-ons. 09/29/2025 2:45 PM EST [facility] Comment:Auto resulted. Blood Venipuncture / Unknown 09/29/2025 2:39 PM EST 09/29/2025 2:44 PM EST Alisia Harman MD LAB BLOOD ORDER ONLY Melodie l Result Performing Organization Address City/[facility]/ZIP Co de Phone Number [facility]
[address] [place] [address], * CBC Auto Differential (09/29/2025 2:39 PM EST) [facility] Signature WBC 5.76 3.40 - 10.80 10*3/mm3 09/29/2025 2:48 PM EST [facility] RBC 5.11 3.77 - 5.28 10*6/mm3 09/29/2025 2:48 PM EST [facility] Hemoglobin 15.2 12.0 - 15.9 g/dL 09/29/2025 2:48 PM EST [facility] Hematocrit 45.0 34.0 - 46.6 % 09/29/2025 2:48 PM [facility] MCV 88.1 79.0 - 97.0 fL 09/29/2025 2:48 PM EST [facility] MCH 29.7 26.6 - 33.0 pg 09/29/2025 2:48 PM [facility] MCHC 33.8 31.5 - 35.7 g/dL 09/29/2025 2:48 PM [facility] RDW 12.4 12.3 - 15.4 % 09/29/2025 2:48 PM [facility] RDW-SD 40.1 37.0 - 54.0 fl 09/29/2025 2:48 PM [facility] MPV 10.6 6.0 - 12.0 fL 09/29/2025 2:48 PM [facility] Platelets 283 140 - 450 10*3/mm3 09/29/2025 2:48 PM EST [facility] Neutrophil % 51.7 42.7 - 76.0 % 09/29/2025 2:48 PM [facility] Lymphocyte % 35.4 19.6 - 45.3 % 09/29/2025 2:48 PM EST [facility] Monocyte % 8.2 5.0 - 12.0 % 09/29/2025 2:48 PM EST [facility] Eosinophil % 3.5 0.3 - 6.2 % 09/29/2025 2:48 PM EST [facility] Basophil % 1.0 0.0 - 1.5 % 09/29/2025 2:48 PM EST [facility] Immature Grans % 0.2 0.0 - 0.5 % 09/29/2025 2:48 PM EST [facility] Neutrophils, Absolute 2.98 1.70 - 7.00 10*3/mm3 09/29/2025 2:48 PM EST [facility] Lymphocytes, Absolute 2.04 0.70 - 3.10 10*3/mm3 09/29/2025 2:48 PM EST [facility] Monocytes, Absolute 0.47 0.10 - 0.90 10*3/mm3 09/29/2025 2:48 PM EST [facility] Eosinophils, Absolute 0.20 0.00 - 0.40 10*3/mm3 09/29/2025 2:48 PM EST [facility] Basophils, Absolute 0.06 0.00 - 0.20 10*3/mm3 09/29/2025 2:48 PM EST [facility] Immature Grans, Absolute 0.01 0.00 - 0.05 10*3/mm3 09/29/2025 2:48 PM [facility] nRBC 0.0 0.0 - 0.2 /100 WBC 09/29/2025 2:48 PM EST [facility] Blood Venipuncture / Unknown 09/29/2025 2:39 PM EST 09/29/2025 2:44 PM EST Alisia Harman MD LAB BLOOD ORDERABLES Melodie l Result [facility]
[address] [place] [address], * Lavender Top (09/29/2025 2:39 PM EST) Extra Tube hold for add-on 09/29/2025 2:45 PM EST [facility] Comment:Auto resulted Blood Venipuncture / Unknown 09/29/2025 2:39 PM EST 09/29/2025 2:44 PM EST us Alisia Harman MD LAB BLOOD ORDER ONLY Melodie l Result Performing Organization Address City/[facility] Co de Phone Number [facility]
[address] [place] [address], * Light Blue Top (09/29/2025 2:39 PM EST) Pathologist [facility] Extra Tube Hold for add-ons. 09/29/2025 2:45 PM EST [facility] Comment:Auto resulted Blood Venipuncture / Unknown 09/29/2025 2:39 PM EST 09/29/2025 2:44 PM EST us Alisia Harman MD LAB BLOOD ORDER ONLY Melodie l Result Performing Organization Address [facility] de Phone Number [facility]
[address] [place] [address], * High Sensitivity Troponin T (09/29/2025 2:39 PM EST) [facility] HS Troponin T <6 <14 ng/L 09/29/2025 3:08 PM EST [facility] Blood Venipuncture / Unknown 09/29/2025 2:39 PM EST 09/29/2025 2:44 PM EST Narrative [facility] - 09/29/2025 3:08 PM EST High [...] injury due to an underlying chronic condition. us Alisia Harman MD LAB BLOOD ORDERABLES Melodie l Result Performing Organization Address [facility]/ZIP Co de Phone Number [facility]
[address] [place] [address], * BNP (09/29/2025 2:39 PM EST) Pathologist [facility] proBNP <36.0 0.0 - 900.0 pg/mL 09/29/2025 3:08 PM EST [facility] Blood Venipuncture / Unknown 09/29/2025 2:39 PM EST 09/29/2025 2:44 PM EST [facility] - 09/29/2025 3:08 PM EST This [...] >75 Positive >1800 Talamantes 300-1800 Negative <300 us Alisia Harman MD LAB BLOOD ORDERABLES Melodie eladio Result [facility]
[address] [place] [address], * Comprehensive Metabolic Panel (09/29/2025 2:39 PM EST) Pathologist [facility] Glucose 85 65 - 99 mg/dL 09/29/2025 3:08 PM EST [facility] BUN 15.9 8.0 - 23.0 mg/dL 09/29/2025 3:08 PM EST [facility] Creatinine 0.77 0.57 - 1.00 mg/dL 09/29/2025 3:08 PM EST [facility] Sodium 139 136 - 145 mmol/L 09/29/2025 3:08 PM EST [facility] Potassium 4.1 3.5 - 5.2 mmol/L 09/29/2025 3:08 PM [facility] Chloride 102 98 - 107 mmol/L 09/29/2025 3:08 PM [facility] CO2 26.7 22.0 - 29.0 mmol/L 09/29/2025 3:08 PM [facility] Calcium 9.7 8.6 - 10.5 mg/dL 09/29/2025 3:08 PM [facility] Total Protein 7.1 6.0 - 8.5 g/dL 09/29/2025 3:08 PM [facility] Albumin 4.4 3.5 - 5.2 g/dL 09/29/2025 3:08 PM [facility] ALT (SGPT) 30 1 - 33 U/L 09/29/2025 3:08 PM [facility] AST (SGOT) 23 1 - 32 U/L 09/29/2025 3:08 PM [facility] Alkaline Phosphatase 86 39 - 117 U/L 09/29/2025 3:08 PM [facility] Total Bilirubin 0.4 0.0 - 1.2 mg/dL 09/29/2025 3:08 PM [facility] Globulin 2.7 gm/dL 09/29/2025 3:08 PM [facility] Comment:Calculated Result A/G Ratio 1.6 g/dL 09/29/2025 3:08 PM [facility] BUN/Creatinine Ratio 20.6 7.0 - 25.0 09/29/2025 3:08 PM [facility] Anion Gap 10.3 5.0 - 15.0 mmol/L 09/29/2025 3:08 PM [facility] eGFR 88.4 >60.0 mL/min/1.7 3 09/29/2025 3:08 PM [facility] Blood Venipuncture / Unknown 09/29/2025 2:39 PM EST 09/29/2025 2:44 PM [facility] - 09/29/2025 3:08 PM EST GFR [...] MD LAB BLOOD ORDERABLES Melodie l Result [facility]
[address] [place] [address], * XR Chest 1 View (09/29/2025 2:23 PM EST) Anatomical Region Laterality Modality Body N/A Radiographic Susan ging 09/29/2025 2:33 PM EST Impressions 09/29/2025 2:35 PM EST Impression: No acute cardiopulmonary findings. Electronically Signed: Jaden Velasquez MD 09/29/2025 2:35 PM EST Workstation ID: [id number] Narrative 09/29/2025 2:35 PM EST XR CHEST [...] MD 09/29/2025 2:35 PM EST Workstation ID: [id number] us Alisia Harman MD IMG DIAGNOSTIC IMAGING OR DERABLES Final Result from Last 3 Months Insurance PPO Care Teams Geomorphology Teacher Relationship Specialty Start Date End Date Adriana King APRN PCP - General Internal Medicine 11/12/22
--- OUTSIDE RECORDS SUMMARY | 2025-10-04 14:47 | XMS_ITS | Encounter Summary ---
Author Organization [facility] Address [address] [place] [address] Care Team Providers Care Culinary Director Name Role Phone Adriana King APRN Primary Care Provider [phone] Encounter Details Date Type Department Care Team (Latest Contact Info) Description 09/29/2025 Travel Social History Tobacco Use Types Packs/Day Years [...] on file documented as of this encounter Plan of Treatment Not on file documented as of this encounter Visit Diagnoses Not on filedocumented in this encounter Care Teams Culinary Director Relationship Specialty Start Date End Date Adriana King APRN PCP - General Internal Medicine 11/12/22 documented as of this encounter
--- NOTE | 2025-10-04 14:53 | CT_ITS ---
FINAL REPORT TECHNIQUE: Axial CT without IV contrast administration. Reconstructed images were obtained and reviewed. This study was performed with techniques to keep radiation doses as low as reasonably achievable, (ALARA). Individualized dose reduction techniques using automated exposure control or adjustment of mA and/or kV according to the patient's size were employed. This study was performed with techniques to keep radiation doses as low as reasonably achievable, (ALARA). Individualized dose reduction techniques using automated exposure control or adjustment of mA and/or kV according to the patient''s size were employed. CLINICAL HISTORY: Shortness of breath, abnormal chest x-ray COMPARISON: 09/20/2025 and 09/05/2025 FINDINGS: The nodular infiltrate in the right lower lobe has improved since prior CT. Abnormality measures 20 x 11 mm, previously measured 26 x 25 mm. No new pulmonary abnormality is identified. No pleural or pericardial effusion is seen. IMPRESSION: 1. Moderately improved nodular infiltrate in the right lower lobe, most likely related to slowly improving pneumonia however recommend continued follow-up to resolution. Recommend CT in 2 to 3 months. Reviewed, Interpreted and Dictated by Stormy Talavera MD Transcribed by Sara Clemente Authenticated and [facility]
== END 2025-10-04 23:59 | disposition home or self-care (01) ==
LOC: RAD 14:43
PROVIDERS: PCP Nurse Practitioner Family; Visit Provider Nurse Practitioner Family
DX: J45.31 Mild persistent asthma with (acute) exacerbation (principal); R91.8 Other nonspecific abnormal finding of lung field; R93.89 Abnormal findings on diagnostic imaging of other specified body structures
CPT/HCPCS: 71250